=== PATIENT | female | born 1935 | race Caucasian/White ===

== ENCOUNTER → 2016-11-26 | Outpatient (CLI) | payer MEDICARE, BC ==
--- NOTE | 2016-11-26 14:27 | MM ---
Reason for exam: history of breast cancer, mastectomy. Last mammogram was performed 1 year ago. History: Patient is postmenopausal and has history of high-risk lesion on a previous biopsy at age 31. Family history of breast cancer in sister at age 67. Implant Removal of both breasts, 1993. Implants in both breasts, 1979. Mastectomy of the left breast, 1959. Mastectomy of the right breast, 1959. Excisional biopsy of the left breast. Excisional biopsy of the right breast. Physical Findings: Nurse did not find any significant physical abnormalities on exam. MG 3D Diag Mammo W/Cad WOLFGANG Bilateral CC and MLO view(s) were taken. Prior study comparison: November 22, 2015, bilateral MG 3d diag mammo w/cad WOLFGANG. November 15, 2014, bilateral MG diagnostic mammo w CAD WOLFGANG. November 11, 2013, CAD bilateral diagnostic mammogram. November 09, 2012, CAD bilateral diagnostic mammogram. November 08, 2011, CAD bilateral diagnostic mammogram. The breast tissue is almost entirely fat. Subtle nodularity lateral left subareolar region was present in 2011 when the breast was positioned similarly. CC nipple in profile does not show any persisting abnormality. No significant new findings when compared with previous films. These results were verbally communicated with the patient and result sheet given to the patient on 11/26/16. ASSESSMENT: Negative, BI-RAD 1 RECOMMENDATION: Routine screening mammogram of both breasts in 1 year.
== END | disposition home or self-care (01) ==
LOC: RADMAMWWP 12:43
PROVIDERS: ATTEND Internal Medicine Geriatric Medicine
DX: C79.81 Secondary malignant neoplasm of breast (principal)
CPT/HCPCS: G0204; G0279

== ENCOUNTER 2017-07-06 16:01 | Emergency (ER) | payer MEDICARE, BC ==
--- NOTE | 2017-07-06 16:52 | ED ---
General Adult HPI - General Chief complaint: Skin/Abscess/Foreign Body Stated complaint: left leg sore/discharge Time Seen by Provider: 07/06/17 16:23 Source: patient, RN notes reviewed Mode of arrival: ambulatory Limitations: no limitations - History of Present Illness Initial comments: Patient is an 82-year-old female who presents emergency room today with a chief complaint of a wound to the left lower leg. She does admit that she wished, when she was shaving. She states was a week ago. She states that she was cleaning the area with some iodine. States is still not healing seems to be weeping at times with some clear drainage. She states she's been covered with some bandages. She denies any other complaints or symptoms. Patient denies any recent fever, chills, shortness of breath, chest pain, back pain, abdominal pain , nausea or vomiting, numbness or tingling, headaches or visual changes, or any other complaints. - Related Data Home Medications Medication Instructions Recorded Confirmed ALPRAZolam [ALPRAZolam] 0.5 mg PO BID PRN 02/17/14 07/06/17 Aspirin [Adult Low Dose Aspirin EC] 81 mg PO DAILY 07/06/17 07/06/17 Ergocalciferol [Vitamin D2] 50,000 unit PO Q7D 07/06/17 07/06/17 Ibuprofen [Advil] 200 mg PO BID PRN 07/06/17 07/06/17 Metoprolol Succinate [Toprol XL] 12.5 mg PO DAILY 07/06/17 07/06/17 Simvastatin [Zocor] 10 mg PO HS 07/06/17 07/06/17 Previous Rx's Medication Instructions Recorded Cephalexin [Keflex] 500 mg PO Q12HR 10 Days cap 07/06/17 Allergies Allergy/AdvReac Type Severity Reaction Status Date / Time iron AdvReac Nausea & Verified 07/06/17 16:18 Vomiting Review of Systems ROS Statement: Those systems with pertinent positive or pertinent negative responses have been documented in the HPI. ROS Other: All systems not noted in ROS Statement are negative. Past Medical History Past Medical History: Hyperlipidemia, Rheumatoid Arthritis (RA) Additional Past Medical History / Comment(s): heart skips per dr mcdaniel History of Any Multi-Drug Resistant Organisms: None Reported Past Surgical History: Hernia Repair, Hysterectomy, Joint Replacement Additional Past Surgical History / Comment(s): mastectomy- both breasts Past Psychological History: Depression Smoking Status: Never smoker Past Alcohol Use History: None Reported Past Drug Use History: None Reported General Exam - General Exam Comments Initial Comments: General: The patient is awake and alert, in no distress, and does not appear acutely ill. Neck: The neck is supple, there is no tenderness or JVD. Cardiovascular: There is a regular rate and rhythm. No murmur, rub or gallop is appreciated. Respiratory: Lungs are clear to auscultation, respirations are non-labored, breath sounds are equal. No wheezes, stridor, rales, or rhonchi. Musculoskeletal: Full range of motion. Sensation intact. Pulses equal bilaterally 2+ per strength 5/5. Neurological: A&O x 3. CN II-XII intact, There are no obvious motor or sensory deficits. Coordination appears grossly intact. Speech is normal. Skin: One centimeter laceration noted to the medial aspect of the left lower leg. There is some clear drainage weeping from the area. There is no redness or erythema locally. No tenderness or pain on palpation. Psychiatric: Normal mood and affect. Limitations: no limitations Course Vital Signs 07/06/17 16:04 Temperature 97.2 F L Pulse Rate 71 Respiratory 20 Rate Blood Pressure 162/82 O2 Sat by Pulse 100 Oximetry Medical Decision Making - Medical Decision Making She denies any shortness of breath. Has no other symptoms other than the wound that will not heal. Small Steri-Strip was placed over top. Patient was eased topical antibiotic will provide an oral antibiotic as well as peripheral cover for possible infection. She is advised close follow family doctor over the next 2 days or return here to emergency room if there is any increase or worsening of symptoms. She states understanding and is in agreement. Disposition Clinical Impression: Laceration Disposition: HOME SELF-CARE Condition: Good Instructions: Acute Wound Care (ED) Additional Instructions: Please use antibiotic as discussed. Please watch for any increased redness or swelling. Please follow-up family doctor over the next 2 days. Please return to emergency room for any other concerns. Prescriptions: Cephalexin [Keflex] 500 mg PO Q12HR 10 Days cap Referrals: Adonis Mcdaniel MD [Primary Care Provider] - 1-2 days Time of Disposition: 16:51
[2017-07-06 17:08] VITALS: BP 130/82; PULSE 74; RESP 18; TEMP 97.6
== END 2017-07-06 17:09 | disposition home or self-care (01) ==
LOC: EC 16:01
DX: S81.812A Laceration without foreign body, left lower leg, initial encounter (principal); E78.5 Hyperlipidemia, unspecified; F32.9 Major depressive disorder, single episode, unspecified; Z79.82 Long term (current) use of aspirin; Z79.899 Other long term (current) drug therapy; Z88.8 Allergy status to other drugs, medicaments and biological substances; W45.8XXA Other foreign body or object entering through skin, initial encounter
CPT/HCPCS: 99282

== ENCOUNTER → 2017-11-27 | Outpatient (CLI) | payer MEDICARE, BC ==
--- NOTE | 2017-11-27 14:06 | MM ---
Reason for exam: additional evaluation requested from prior study. Last mammogram was performed 1 year ago. History: Patient is postmenopausal and has history of high-risk lesion on a previous biopsy at age 31. Family history of breast cancer in sister at age 67. Implant Removal of both breasts, 1993. Implants in both breasts, 1979. Mastectomy of the left breast, 1959. Mastectomy of the right breast, 1959. Excisional biopsy of the left breast. Excisional biopsy of the right breast. Physical Findings: Nurse did not find any significant physical abnormalities on exam. MG 3D Diag Mammo W/Cad WOLFGANG Bilateral CC and MLO view(s) were taken. Prior study comparison: November 26, 2016, bilateral MG 3d diag mammo w/cad WOLFGANG. November 22, 2015, bilateral MG 3d diag mammo w/cad WOLFGANG. There are scattered fibroglandular densities. There is no discrete abnormality. These results were verbally communicated with the patient and result sheet given to the patient on 11/27/17. ASSESSMENT: Negative, BI-RAD 1 RECOMMENDATION: Follow-up diagnostic mammogram of both breasts in 1 year.
== END | disposition home or self-care (01) ==
LOC: RADMAMWWP 12:51
PROVIDERS: ATTEND Internal Medicine Geriatric Medicine
DX: C79.81 Secondary malignant neoplasm of breast (principal)
CPT/HCPCS: 77066; G0279; 77062

== ENCOUNTER → 2018-06-25 | Outpatient (CLI) | payer MEDICARE, BC ==
[2018-06-25 14:16] VITALS: BP 135/80; PULSE 64; RESP 16; TEMP 97.9; BMI 31.6
--- NOTE | 2018-06-25 14:59 | P.GSHP ---
History of Present Illness H&P Date: 06/25/18 Chief Complaint: breast pain Beba is an 83 year old white female status post bilateral skin sparing mastectomies in August 1978. She had implants placed and subsequently had the implants removed in 1993. The mastectomies were done as she was told she was very high risk to develop cancer. The surgery was done at [facility]. At that time the implants kept hardening and after four capsulotomies done she decided to have them removed. She did have the implants studied and there was evidence that the implants had ruptured. She did not have reconstruction after this. Her implants leaked and she has been getting mammograms for questionable reason for about five years. She has bilateral chest pain and pain under her left arm. Of significance is the fact that in May 2018 she awakened from sleep with an electric shock pain just below both breasts and about the middle breast Center bone. There is some concern that this may be cardiac in nature and she is presently being evaluated for this by Dr. Soares. The pain is intermittent. It last for several months and is very intense. Patient did have a bilateral mammogram performed on . This was felt to be negative BIRADS 1 and repeat bilateral mammogram in 1 year recommended. There is some question as to why she would be needing mammograms if she did indeed have bilateral mastectomies. Family History: 1. father: lung 2. sister: breast 3. sister: throat cancer and tongue cancer 4. maternal uncle: liver 5. maternal aunt: kidney cancer Hormonal History: menarche: 17 : 2, children 2, breast fed: no, age at first: 20 menopause: hysterctomy at 37 BCP: none hormones: none past Surgical History: 1. hysterectomy, took one ovary 2. breast bilateral mastectomy/reconstruction, implants removed 3. hernia (right groin) 4. knee right complete replacement Medical History: 1. arthritis Social History: smoke: none alcohol: none drugs: none - Constitutional Comment: BMI 31.7 Constitutional: Denies chills, Denies fever - EENT Comment: cataract surgery Eyes: denies blurred vision, denies pain Ears: deny: decreased hearing, tinnitus Ears, nose, mouth and throat: Reports headache - Breasts Breasts: bilateral: as per HPI - Cardiovascular Comment: being worked up by cardiology Cardiovascular: Reports chest pain - Respiratory Respiratory: Denies cough, Denies 7 - Gastrointestinal Comment: IBS - Genitourinary (Female) Genitourinary: Denies dysuria, Denies hematuria - Menstruation Menstruation: Reports postmenopausal - Musculoskeletal Comment: ? fibromyalgia wrist fracture knee replacement - Integumentary Integumentary: Reports rash, Denies pruritus - Neurological Neurological: Denies numbness, Denies weakness - Psychiatric Psychiatric: Reports anxiety, Reports depression - Endocrine Endocrine: Reports weight change - Hematologic/Lymphatic Comment: aspirin - Allergic/Immunologic Allergic/Immunologic: Reports as per HPI Past Medical History Past Medical History: Hyperlipidemia, Rheumatoid Arthritis (RA) Additional Past Medical History / Comment(s): heart skips per dr mcdaniel History of Any Multi-Drug Resistant Organisms: None Reported Past Surgical History: Hernia Repair, Hysterectomy, Joint Replacement Additional Past Surgical History / Comment(s): mastectomy- both breasts Past Psychological History: Depression Smoking Status: Never smoker Past Alcohol Use History: None Reported Past Drug Use History: None Reported Medications and Allergies Home Medications Medication Instructions Recorded Confirmed Type ALPRAZolam 0.5 mg PO BID PRN 02/17/14 06/25/18 History Aspirin [Adult Low Dose Aspirin EC] 81 mg PO DAILY 07/06/17 06/25/18 History Cephalexin [Keflex] 500 mg PO Q12HR 10 Days cap 07/06/17 06/25/18 Rx Ergocalciferol [Vitamin D2] 50,000 unit PO APARICIO 07/06/17 06/25/18 History Ibuprofen [Advil] 200 mg PO BID PRN 07/06/17 06/25/18 History Metoprolol Succinate [Toprol XL] 12.5 mg PO DAILY 07/06/17 06/25/18 History Hydrocodone/Acetaminophen [Vernal 1 tab PO Q6HR PRN #20 tab 07/09/17 06/25/18 Rx 5-325] Ondansetron Odt [Zofran Odt] 4 mg PO Q12HR PRN #20 tab 07/09/17 06/25/18 Rx Atorvastatin [Lipitor] 10 mg PO DAILY 06/25/18 06/25/18 History Allergies Allergy/AdvReac Type Severity Reaction Status Date / Time iron AdvReac Nausea & Verified 07/09/17 19:27 Vomiting Surgical - Exam Vital Signs Temp Pulse Resp BP Pulse Ox 97.9 F 64 16 135/80 96 06/25/18 13:59 06/25/18 13:59 06/25/18 13:59 06/25/18 13:59 06/25/18 13:59 BMI 31.7 - General obese - Eyes normal ocular movement - ENT no hearing loss, no congestion - Neck no masses, trachea midline - Respiratory normal respiratory effort, clear to auscultation - Cardiovascular Rhythm: regular Heart Sounds: normal: S1, S2 - Abdomen Abdomen: soft - Neurologic no disoriented, no combative - Musculoskeletal normal gait - Psychiatric oriented to time, oriented to person, oriented to place, speech is normal, memory intact breast exam: Right breast: Well-healed scars from prior surgery there is definite residual breast tissue multiple positional exam no dominant masses or nodules of concern Left breast: Well-healed scars from prior surgery there is definite residual breast tissue multiple positional exam no dominant masses or nodules of concern Right axilla: No adenopathy of concern Left axilla: No adenopathy of concern There does appear to be discomfort with examination but this appears to be more related to chest wall discomfort than actual discomfort in the breast tissue. Results Mammogram report reviewed Assessment and Plan Assessment: Impression: 1. Bilateral chest wall discomfort 2. Rule out cardiac cause for pain 3. Status post some type of breast reduction procedure with implants placed which were subsequently removed patient now has scar tissue related to this 4. Mammogram bilateral in November 2017 did not reveal any lesions of concern 5. Gross arthritis 6. depression Plan: 1. Medical management of medical conditions 2. Cardiac evaluation as per 3. Follow-up. After cardiac evaluation 4. No deffinate breast lesions or cause of pain noted in breast at this time CC: Dr. Mcdaniel
== END | disposition home or self-care (01) ==
LOC: WWCWWP 13:41
PROVIDERS: ATTEND Surgery
DX: Z53.9 Procedure and treatment not carried out, unspecified reason (principal)

== ENCOUNTER → 2018-07-01 | Outpatient (CLI) | payer MEDICARE, BC ==
--- NOTE | 2018-07-01 11:45 | US ---
EXAMINATION TYPE: US abdomen complete DATE OF EXAM: 07/01/2018 COMPARISON: 07/04/2015 CLINICAL HISTORY: Generalized R10.84. Patient states having RUQ pain that radiated to the LUQ, NPO, n o surgeries EXAM MEASUREMENTS: Liver Length: 13.5 cm Gallbladder Wall: 0.3 cm CBD: 0.4 cm CHD: 0.3 cm Spleen: 10.6 cm Right Kidney: 8.8 x 4.4 x 3.7 cm Left Kidney: 10.2 x 3.9 x 3.9 cm Pancreas: Appears echogenic in appearance, Liver: Appears echogenic and course in appearance Gallbladder: wnl Evidence for sonographic Lazar's sign: neg CBD: wnl CHD: wnl Spleen: wnl Right Kidney: wnl Left Kidney: wnl Upper IVC: wnl Abd Aorta: wnl IMPRESSION: 1. No acute abnormality abdomen ultrasound.
== END | disposition home or self-care (01) ==
LOC: RADUSWWP 08:34
PROVIDERS: ATTEND Internal Medicine Geriatric Medicine
DX: R10.84 Generalized abdominal pain (principal)
CPT/HCPCS: 76700

== ENCOUNTER → 2018-09-03 | Outpatient (CLI) | payer MEDICARE, BC ==
[2018-09-03 13:11] VITALS: BP 135/75; PULSE 66; RESP 18; TEMP 97.7
--- NOTE | 2018-09-03 13:40 | P.PN ---
Subjective Progress Note Date: 09/03/18 Principal diagnosis: Chest wall discomfort/electric shock like in nature The patient is an 83-year-old white female who initially presented with a complaint of bilateral chest wall discomfort. She is status post bilateral reduction mammoplasties with implant placement in 1978. The implants were subsequently removed in 1993. She has not had additional implants placed. The patient did have a bilateral mammogram in November 2017 which was felt to be negative BIRADS 1. The chest wall discomfort was of concern that this may be cardiac in nature and she is following with Dr. Rosenbaum. Patient is requesting a bilateral breast and axillary ultrasounds be performed. She does have a positive family history of sister being diagnosed with breast cancer. Objective - Vital Signs Vital signs: Vital Signs Temp 97.7 F 09/03/18 13:08 Pulse 66 09/03/18 13:08 Resp 18 09/03/18 13:08 BP 135/75 09/03/18 13:08 Pulse Ox 97 09/03/18 13:08 Intake & Output 09/02/18 09/03/18 09/03/18 18:59 06:59 18:59 Weight 81.193 kg - Constitutional General appearance: Present: obese - EENT Eyes: Present: EOMI ENT: Present: hearing grossly normal - Neck Neck: Present: normal ROM - Respiratory Respiratory: bilateral: CTA - Cardiovascular Rhythm: regular Heart sounds: normal: S1, S2 - Gastrointestinal General gastrointestinal: Present: soft - Psychiatric Psychiatric: Present: A&O x's 3, appropriate affect, intact judgment & insight - Additional findings Additional findings: Breast exam: Right breast: Multiple positional exam well-healed scars from prior surgery, no dominant masses or nodules of concern Right axilla: No adenopathy of concern Left breast: Well-healed scar from prior surgery left axilla: no adenopathy of concern Assessment and Plan Assessment: Impression: 1. Bilateral chest wall discomfort 2. Patient being followed by cardiology 3. Patient status post breast reduction with implants placed and subsequent removal of the implants 4. Bilateral mammogram in November 2017 did not reveal any lesions of concern 5. Arthritis 6. Depression Plan: 1. Medical management of medical conditions 2. Continue cardiac management as per Dr. Soares 3. Patient has requested bilateral breast and axillary ultrasounds which will be ordered 4. Bilateral mammogram in November 2018 5. Follow up after bilateral mammogram and ultrasound performed CC: Dr. Queen
== END ==
LOC: WWCWWP 12:24
PROVIDERS: ATTEND Surgery
DX: Z53.9 Procedure and treatment not carried out, unspecified reason (principal)

== ENCOUNTER → 2018-10-05 | Outpatient (CLI) | payer MEDICARE, BC ==
--- NOTE | 2018-10-06 08:04 | USB ---
Reason for exam: clinical finding. History: Patient is postmenopausal and has history of high-risk lesion on a previous biopsy at age 31. Family history of breast cancer in sister at age 67. Implant Removal of both breasts, 1993. Implants in both breasts, 1979. Mastectomy of the left breast, 1959. Mastectomy of the right breast, 1959. Excisional biopsy of the left breast. Excisional biopsy of the right breast. Indicated problem(s): pain in both breasts. Physical Findings: Nurse did not find any significant physical abnormalities on exam. US Breast BILAT Right complete breast ultrasound includes all four quadrants, the retroareolar region and axilla. Finding demonstrates a 8mm lymph node at the axilla, no cystic or solid lesion seen. Left complete breast ultrasound includes all four quadrants, the retroareolar region and axilla. Finding demonstrates a 4mm and 5mm lymph node at the axilla, no cystic or solid lesion seen. These results were verbally communicated with the patient and result sheet given to the patient on 10/05/18. ASSESSMENT: Benign, BI-RAD 2 RECOMMENDATION: Follow-up diagnostic mammogram of both breasts in 2 months. Back on schedule for November 2018.
== END | disposition home or self-care (01) ==
LOC: RADUSWWP 15:26
PROVIDERS: ATTEND Surgery
DX: N64.4 Mastodynia (principal)

== ENCOUNTER → 2018-10-08 | Outpatient (CLI) | payer MEDICARE, BC ==
--- NOTE | 2018-10-08 11:58 | CT ---
EXAMINATION TYPE: CT chest w con DATE OF EXAM: 10/08/2018 COMPARISON: NONE HISTORY: SOB CT DLP: 403.9 mGycm. Automated Exposure Control for Dose Reduction was Utilized. TECHNIQUE: CT scan of the thorax is performed following with IV Contrast, patient injected with 100 mL of Isovue 300. FINDINGS: LUNGS: The lungs are grossly clear, there is no concerning parenchymal mass or nodule identified. Mul tifocal bandlike pleural parenchymal scarring and/or atelectasis is seen, particularly at the left karina ng base contiguous with the pleural surface. There is no pleural effusion or pneumothorax seen. Th e tracheobronchial tree is patent. MEDIASTINUM: There are no greater than 1 cm hilar or mediastinal lymph nodes. No pericardial effusi on is seen. Severe coronary artery calcifications are evident. Heart is mildly enlarged. OTHER: There is encapsulated haziness of the central mesentery with few nonenlarged clustered enteric lymph nodes that most commonly relates to mesenteric panniculitis/sclerosing mesenteritis and less l ikely can be seen in lymphoma. No enlarged lymph nodes are seen at this time. There is severe atherosclerosis at the left renal artery ostial. There is hypertension renal arterial stenosis could be considered. Small hiatal hernia is incidentally seen. The liver is decreased in at tenuation in comparison to the spleen compatible with mild degree hepatic steatosis. Compression defo rmity is seen of T7 however this does appear as a butterfly vertebrae on coronal images and could be congenital. Anterior bridging osteophytes are seen of the midthoracic spine. IMPRESSION: 1. Bandlike pleural parenchymal scarring and left basilar atelectasis contiguous with the pleural krunal face that is subsegmental. 2. 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 These findings less commonly be seen in low-grade lymphoma however no enlarged lymph nodes are seen at this time. 3. 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 Ultrasound with Doppler could confirm renal arter ial stenosis. 4. 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 Correlate for point tenderness.
== END ==
LOC: RADCTMAIN 09:59
PROVIDERS: ATTEND Internal Medicine Critical Care Medicine
DX: J98.4 Other disorders of lung (principal); J98.11 Atelectasis
CPT/HCPCS: 82565; 84520; 71260; 36415; Q9967

== ENCOUNTER → 2018-10-22 | Outpatient (CLI) | payer MEDICARE, BC ==
[2018-10-22 12:55] VITALS: BP 138/78; PULSE 69; RESP 18; TEMP 98; BMI 29.9
--- NOTE | 2018-10-22 13:38 | P.PN ---
Subjective Progress Note Date: 10/22/18 Principal diagnosis: breast discomfort Beba is an 83 year old white female initially seen in June 2018 with a complaint of bilateral chest/breast pain. Her chest and breast discomfort is improved at this time. She has been evaluated by pulmonary and is going to start on oxygen at night. The patient's history is significant for the fact that she had bilateral skin sparing mastectomies in August 1978. She had implants placed and subsequently they were removed in 1993. The mastectomies were done and she was told she was very high risk to develop cancer. The surgery was done upon [facility]. At that time the implants Hardening and after 4 capsulotomies she decided to have them removed. At that time they were removed it was noted that the implants had leaked. She has been getting mammograms and does have significant residual breast tissue. The patient was seen by cardiology and told that she most likely had a myocardial infarction she was started on Lipitor but no other medications. The pain that she had on her presentation in June has improved. She did have a bilateral breast ultrasound performed on and was felt to be benign BIRADS 2. She is scheduled for follow-up diagnostic mammogram of both breast in 2 months. Family History: 1.father: lung 2. sister: breast 3. sister: throat cncer and tongue cancer 4. maternal uncle: liver 5. maternal aunt: kidney cancer Past surgical history: 1. Hysterectomy 2. Bilateral mastectomy/reconstruction/implants removed 2. Hernia 4. Right knee complete replacement Medical history: 1. Arthritis 2. Shortness of breath patient being started on oxygen 3. Probable myocardial infarction as per cardiology as per patient ROS: HEENT: Negative Lungs: Shortness of breath requiring nighttime oxygen Cardiac: Possible prior [place] GI: Recent CAT scan showing some evidence of mesenteric inflammation being followed by Dr. Queen : Kidney stones Musculoskeletal: Arthritis Breasts: Discomfort status post bilateral mastectomies with significant amount of residual breast tissue, status post implant placements which have been removed Objective - Vital Signs Vital signs: Vital Signs Temp 98.0 F 10/22/18 12:53 Pulse 69 10/22/18 12:53 Resp 18 10/22/18 12:53 BP 138/78 10/22/18 12:53 Pulse Ox 97 10/22/18 12:53 Intake & Output 04/03/19 04/04/19 04/04/19 18:59 06:59 18:59 Weight 78.018 kg - Exam BMI 30 - Constitutional General appearance: Present: average body habitus - EENT Eyes: Present: EOMI ENT: Present: hearing grossly normal - Neck Neck: Present: normal ROM - Respiratory Respiratory: bilateral: CTA - Cardiovascular Rhythm: regular Heart sounds: normal: S1, S2 - Gastrointestinal General gastrointestinal: Present: soft - Musculoskeletal Musculoskeletal: Present: gait normal - Psychiatric Psychiatric: Present: A&O x's 3, appropriate affect, intact judgment & insight - Additional findings Additional findings: breast exam: right breast: Multi-positional exam well-healed scars from prior surgery no dominant masses or nodules of concern Right axilla: No adenopathy of concern Left breast: Multi-positional exam no dominant masses or nodules of concern, the patient probable fungal infection inferior to the breast Fibrocystic changes Left axilla: No adenopathy of concern Assessment and Plan Assessment: Impression: 1. Bilateral chest wall discomfort improved 2. Patient being followed by cardiology 3. Patient status post breast reduction with implants placed and subsequently removed 4. Bilateral mammogram due November 2018 5. Recent breast ultrasound no lesions of concern 6. Arthritis 7. Depression in the past 8. Being started on oxygen at night 9. Probable fungal infection inferior to the left breast Plan: 1. Bilateral mammogram in 2 months with physician exam at that time 2. Continued management of medical conditions as per medical doctors 3. Nystatin to area under her left breast CC: Dr. Queen
== END ==
LOC: WWCWWP 12:28
PROVIDERS: ATTEND Surgery
DX: Z53.9 Procedure and treatment not carried out, unspecified reason (principal)

== ENCOUNTER → 2018-11-24 | Outpatient (CLI) | payer MEDICARE, BC ==
[2018-11-24 08:52] LABS: Basophils % (A) 1 %; Eosinophils # (A) 0.1 k/uL (0-0.7); Eosinophils % (A) 2 %; HCT 41.3 % (34.0-46.0); HGB 13.2 gm/dL (11.4-16.0); Lymphocytes # (A) 1.4 k/uL (1.0-4.8); Lymphocytes % (A) 26 %; MCH 28.3 pg (25.0-35.0); MCV 88.5 fL (80.0-100.0); Mean Platelet Volume 8.9; Monocytes # (A) 0.3 k/uL (0-1.0); Monocytes % (A) 6 %; Neutrophils # (A) 3.4 k/uL (1.3-7.7); Neutrophils % (A) 63 %; Platelet Count 172 k/uL (150-450); RBC 4.67 m/uL (3.80-5.40); RDW 13.5 % (11.5-15.5); WBC 5.5 k/uL (3.8-10.6)
[2018-11-24 17:39] LABS: Albumin 4.1 g/dL (3.80-4.90); Albumin/Globulin Ratio 2.28 (1.60-3.17); Anion Gap 8.7 mmol/L (4.00-12.00); Calcium 9.1 mg/dL (8.7-10.3); Carbon Dioxide 25.3 mmol/L (21.6-31.8); Globulin 1.8 g/dL (1.6-3.3); LDL Cholesterol,Calculated 71.4 mg/dL (0.0-131.0); Potassium 4.1 mmol/L (3.5-5.5); Total Bilirubin 0.8 mg/dL (0.2-1.2); Total Protein 5.9 g/dL (6.2-8.2); VLDL Calculation 15.6 mg/dL (5.00-40.00)
== END | disposition home or self-care (01) ==
LOC: LABWHC1 08:15
PROVIDERS: ATTEND Internal Medicine Geriatric Medicine
DX: R79.9 Abnormal finding of blood chemistry, unspecified (principal); Z00.00 Encounter for general adult medical examination without abnormal findings; I25.10 Atherosclerotic heart disease of native coronary artery without angina pectoris; E55.9 Vitamin D deficiency, unspecified
CPT/HCPCS: 36415; 80053; 80061; 82306; 82550; 84439; 84443; 85025

== ENCOUNTER → 2018-12-07 | Outpatient (CLI) | payer MEDICARE, BC ==
--- NOTE | 2018-12-08 08:31 | MM ---
Reason for exam: additional evaluation requested from prior study. Last mammogram was performed 1 year ago. History: Patient is postmenopausal and has history of high-risk lesion on a previous biopsy at age 31. Family history of breast cancer in sister at age 67. Implant Removal of both breasts, 1993. Implants in both breasts, 1979. Mastectomy of the left breast, 1959. Mastectomy of the right breast, 1959. Excisional biopsy of the left breast. Excisional biopsy of the right breast. Physical Findings: Nurse did not find any significant physical abnormalities on exam. MG 3D Diag Mammo W/Cad WOLFGANG Bilateral CC and MLO view(s) were taken. Prior study comparison: November 27, 2017, bilateral MG 3d diag mammo w/cad WOLFGANG. November 26, 2016, bilateral MG 3d diag mammo w/cad WOLFGANG. There are scattered fibroglandular densities. No significant new findings when compared with previous films. These results were verbally communicated with the patient and result sheet given to the patient on 12/07/18. ASSESSMENT: Benign, BI-RAD 2 RECOMMENDATION: Follow-up diagnostic mammogram of both breasts in 1 year.
== END | disposition home or self-care (01) ==
LOC: RADMAMWWP 12:44
PROVIDERS: ATTEND Surgery
DX: R92.8 Other abnormal and inconclusive findings on diagnostic imaging of breast (principal)
CPT/HCPCS: 77066; G0279; 77062

== ENCOUNTER → 2018-12-17 | Outpatient (CLI) | payer MEDICARE, BC ==
[2018-12-17 13:36] VITALS: BP 157/73; PULSE 55; RESP 18; TEMP 97.6; BMI 28.7
--- NOTE | 2018-12-17 14:36 | P.PN ---
Subjective Progress Note Date: 12/17/18 Principal diagnosis: pain and swelling under both arms last night Patient complains of pain and swelling under both arms last night after moving heavy furniture. She states it is better now. The chest wall shock like pain has resolved. She has been seen by cardiology and does not feel she needs treatment. The question is if she had a HI without changes noted on studies. The patients last mammogram was on 12-07-18 which did not show anything of concern, and she is recommended to have a repeat mammogram in one year. She had a CT of chest on 10-08-18 and is being followed by Dr. Queen. She is following with DR. Queen for these changes. Family History: 1. father: lung 2. sister: breast 3. sister: throat cancer and tongue cancer 4. maternal uncle: liver 5. maternal aunt: kidney cancer Hormonal History: menarche: 17 menopause: hysterctomy at 37 BCP: none hormones: none Surgical History: 1. hysterctomy 2. breast bilateral mastectomy/reconstruction 3. hernia 4. knee Medical History: arthritis abnormal CT of the chest, being followed by Dr. Queen ROS: HEENT: none lungs: none heart: ? [place] GI: abnormal CT scan, IBS : kidney stones musculoskeletal: arthritis, knee replacement right knee psych: anziety/depression hemotologic: none Objective - Vital Signs Vital signs: Vital Signs Temp 97.6 F 12/17/18 13:28 Pulse 55 L 12/17/18 13:28 Resp 18 12/17/18 13:28 BP 157/73 12/17/18 13:28 Pulse Ox Intake & Output 12/16/18 12/17/18 12/17/18 18:59 06:59 18:59 Weight 73.482 kg - Constitutional General appearance: Present: average body habitus - EENT Eyes: Present: EOMI ENT: Present: hearing grossly normal - Neck Neck: Present: normal ROM - Respiratory Respiratory: bilateral: CTA - Cardiovascular Rhythm: regular Heart sounds: normal: S1, S2 - Gastrointestinal General gastrointestinal: Present: soft - Integumentary Integumentary: Present: normal turgor - Musculoskeletal Musculoskeletal: Present: gait normal - Psychiatric Psychiatric: Present: A&O x's 3 - Additional findings Additional findings: breast exam: right breast: multipositional exam no masses or nodules of concern right axilla: no adenopathy of concern left breast: multipositional exam no masses or nodules of concern, fibrocystic changes left axilla: no adenopathy of concern Assessment and Plan Assessment: Impression: 1. fibrocystic changes of the breast 2. resolved breast pain 3. abnormal CT of chest/abdominal findings 4. anxiety/depression plan: 1. repeat mammogram and appointment in one year 2. CT findings being worked up be DR. Queen CC: Dr. Queen
== END | disposition home or self-care (01) ==
LOC: WWCWWP 13:22
PROVIDERS: ATTEND Surgery
DX: Z53.9 Procedure and treatment not carried out, unspecified reason (principal)

== ENCOUNTER → 2019-01-26 | Outpatient (CLI) | payer MEDICARE, BC ==
--- NOTE | 2019-01-26 13:28 | CT ---
EXAMINATION TYPE: CT abdomen pelvis w con DATE OF EXAM: 01/26/2019 COMPARISON: CT abdomen 08/17/[address] chest 10/08/2018 HISTORY: 83-year-old female with generalized abd pain, abn CT chest report TECHNIQUE: Contiguous axial scanning of the abdomen and pelvis following administration of 100 ml Iso maribel 300 IV contrast. Delayed images through the kidneys and coronal/sagittal reconstructions perform ed. CT DLP: 856.7 mGycm Automated exposure control for dose reduction was used. FINDINGS: Heart upper limits of normal in size without pericardial effusion. Strandy atelectasis in the lower l ungs without pleural effusion. Small hiatal hernia. No focal liver lesion or biliary ductal dilatation. Portal venous system is patent. Gallbladder, adrenal glands, spleen, and pancreas appear within normal limits. There is mild right-sided pelvicaliectasis but with symmetric uptake and excretion of contrast from b oth kidneys. The degree of central located miguel ángel mesentery is similar as visualized on 10/08/2028 CT chest. Compari son to patient's 2016 exam also shows relatively stable appearance. Lymph nodes in this region are sl ightly prominent measuring up to 4 mm but not abnormally enlarged. Oral contrast progressed to the hepatic flexure. Mild to moderate stool burden. Mild diverticular change along the transverse colon. No pericolonic inflammatory change. No dilated small bowel, free fluid, or free air. Scattered moderate after describing calcifications abdominal aorta and iliac arteries with redemonstr ated severe atherosclerotic change at the origin of the left renal artery. Bladder is urine distended. Pelvic floor relaxation. Uterus surgically absent. Right ovary is visuali zed. Left ovary not clearly identified. Platelets in the pelvis. No abnormal fluid collection in the pelvis or pelvic lymphadenopathy. Bones: Degenerative changes of the pubic symphysis and both hips. Facet arthropathy mid to lower lumb ar spine. No osseous destructive process. IMPRESSION: 1. STABLE MIGUEL ÁNGEL MESENTERY WITH A FEW PROMINENT BUT NOT ENLARGED CENTRAL MESENTERIC LYMPH NODES COM PARED TO 08/09/2015. 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 CORRELATE FOR ANY CHRONIC SYMPTOMS. AN INDOLENT LYMPHOMA IS CONSIDERED LESS L IKELY GIVEN OVER 3 YEARS OF STABILITY. 2. REDEMONSTRATED SEVERE ATHEROSCLEROTIC CALCIFICATIONS AT THE LEFT RENAL ARTERY ORIGIN. 3. PELVIC FLOOR RELAXATION.
== END | disposition home or self-care (01) ==
LOC: RADCTMAIN 10:16
PROVIDERS: ATTEND Internal Medicine Geriatric Medicine
DX: I70.1 Atherosclerosis of renal artery (principal)
CPT/HCPCS: 82565; 84520; 74177; 36415; Q9967

== ENCOUNTER → 2019-02-11 | Outpatient (CLI) | payer MEDICARE, BC ==
--- NOTE | 2019-02-11 14:46 | P.PN ---
Subjective Progress Note Date: 02/11/19 Beba is an 83 year old white female initially seen in June 2018 with a complaint of bilateral chest/breast pain. Her chest and breast discomfort is improved at this time. The patient's breast pain has resolved. She does continue to have some left breast discomfort. She was evaluated by pulmonary and was started on oxygen at night. This helps her sleep better at night. The patient's history is significant for the fact that she had bilateral skin sparing mastectomies in August 1978. She had implants placed and subsequently they were removed in 1993. The mastectomies were done and she was told she was very high risk to develop cancer. The surgery was done at [facility]. At that time the implants Hardening and after 4 capsulotomies she decided to have them removed. At that time they were removed it was noted that the implants had leaked. She has been getting mammograms and does have significant residual breast tissue. The patient was seen by cardiology and told that she most likely had a myocardial infarction she was started on Lipitor but no other medications. The patient had a bilateral mammogram done in November 2018. This was felt to be benign BIRADS 2 and repeat mammogram in 1 year was recommended. This was a 3-D mammogram. She had a CAT scan done of her abdomen and pelvis on January 26. The impression was stable mesentery with a few prominent but not enlarged central mesenteric lymph nodes as compared to July 2015. 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 An indolent lymphoma was considered less likely given the 3 years of stability. Also demonstrated was atherosclerotic calcification at the level of the renal artery origin. She also has pelvic floor relaxation. She did have a bilateral breast ultrasound performed on and was felt to be benign BIRADS 2. She is scheduled for follow-up diagnostic mammogram of both breast in 2 months. The patient drinks one cup of coffee per day. She does not drink soda. Not smoke and is not exposed to secondhand smoke. She eats at least one piece of dark chocolate per day. The patient has lost 14 pounds since she started coming here. Family History: 1.father: lung 2. sister: breast 3. sister: throat cncer and tongue cancer 4. maternal uncle: liver 5. maternal aunt: kidney cancer Past surgical history: 1. Hysterectomy 2. Bilateral mastectomy/reconstruction/implants removed 2. Hernia 4. Right knee complete replacement Medical history: 1. Arthritis 2. Shortness of breath patient being started on oxygen, improved 3. Probable myocardial infarction as per cardiology as per patient 4. atherosclerotic changes renal orfice ROS: HEENT: Negative Lungs: Shortness of breath requiring nighttime oxygen Cardiac: Possible prior [place] GI: Recent CAT scan showing some evidence of mesenteric inflammation being followed by Dr. Queen : Kidney stones Musculoskeletal: Arthritis Breasts: Discomfort status post bilateral mastectomies with significant amount of residual breast tissue, status post implant placements which have been removed Objective - Constitutional General appearance: Present: obese - EENT Eyes: Present: EOMI ENT: Present: hearing grossly normal - Neck Neck: Present: normal ROM - Respiratory Respiratory: bilateral: CTA - Cardiovascular Rhythm: regular Heart sounds: normal: S1, S2 - Gastrointestinal General gastrointestinal: Present: soft - Integumentary Integumentary: Present: normal turgor - Musculoskeletal Musculoskeletal: Present: gait normal - Psychiatric Psychiatric: Present: A&O x's 3, appropriate affect, intact judgment & insight - Additional findings Additional findings: beast exam: right Breasts: Multiple positional exam no dominant masses or nodules of concern, well-healed scars from prior breast surgery Right axilla: No adenopathy of concern Left breast: Multiple positional exam tenderness to palpation in the medial aspect of the breast, no dominant masses or nodules of concern Left axilla: No adenopathy of concern Under the left breast is some evidence of fungal infection Assessment and Plan Assessment: Impression: 1. Arthritis 2. Shortness of breath patient being started on oxygen, improved 3. Probable myocardial infarction as per cardiology as per patient 4. atherosclerotic changes renal orfice 5. breast pain 6. fungal infection under the left breast 7. CT abnormal 8. athrosclerotic changes right kidney Plan: 1. primrose oil 2. avoid caffeine 3. medcal managment of medical problems 4. follow up bilateral mammogram in November 2019 CC: Dr. Queen
== END | disposition home or self-care (01) ==
DX: Z53.9 Procedure and treatment not carried out, unspecified reason (principal)

== ENCOUNTER → 2019-05-25 | Outpatient (CLI) | payer MEDICARE, BC ==
--- NOTE | 2019-05-25 12:45 | CT ---
EXAMINATION TYPE: CT abdomen pelvis w con DATE OF EXAM: 05/25/2019 HISTORY: Abdominal pain, R/O CA CT DLP: 961.8mGycm Automated Exposure Control for Dose Reduction was Utilized. CONTRAST: CT scan of the abdomen and pelvis is performed with IV Contrast, patient injected with 100 mL of Isov ue 300. COMPARISON: 01/26/2019 and 08/17/2015 FINDINGS: LUNG BASES: Linear pleural parenchymal scarring of the lung bases and right middle lobe as well as mi nimal multifocal subsegmental atelectasis. Redemonstration of a small hiatal hernia containing oral c ontrast that may be on the basis of gastroesophageal reflux or delayed transit. LIVER/GB: Liver enhances homogeneously without identifiable mass or dilated biliary tree. Gallbladder is unremarkable. PANCREAS: No ductal dilatation is seen. Pancreas enhances homogeneously. SPLEEN: No splenomegaly. ADRENALS: No significant abnormality is seen. KIDNEYS: Right-sided pelvocaliectasis is again noted as seen on the prior. Pelvic floor relaxation is seen with possible cystocele on image 75. Coronal image demonstrates 2 punctate nonobstructing appro ximately 2 mm right lower pole renal calculi and image 45. Left upper pole nonobstructing calculus is also 2 mm on image 61. BOWEL: No dilated large or small bowel. Few scattered colonic diverticula without pericolonic fat str anding. UTERUS/ADNEXA: Uterus appears surgically absent. LYMPH NODES: No greater than 1cm abdominal or pelvic lymph nodes are appreciated. OSSEOUS STRUCTURES: Diffuse osseous demineralization and degenerative changes of the spine. OTHER: There is a stable appearance of the central miguel ángel mesentery again in comparison to the exam of 2016 this is relatively stable. No enlarged lymph nodes are seen. Lymph nodes measure up to 4.7 mm i n the region that was measured on the prior (4 mm). This has a typical appearance of mesenteric panni culitis. A central mesenteric lymph node on series 3 image 26 measures approximately 6 mm and previou sly measured 5 mm. There is no significant interval growth and change in caliber at 1 mm could be on the basis of slice selection. Extensive atheromatous changes of the aorta are seen at the SMA ostia and renal ostia and of the lowe r abdominal aorta and its branches. IMPRESSION: 1. 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 Relatively stable appearance from 2016 with no new enlarged lymph nodes. 2. 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 Atheromatous calcificatio ns of the abdominal aorta. 3. Redemonstration of pelvis for relaxation with probable cystocele of the urinary bladder.
== END | disposition home or self-care (01) ==
LOC: RADCTMAIN 10:12
PROVIDERS: ATTEND Internal Medicine Geriatric Medicine
DX: I70.0 Atherosclerosis of aorta (principal); I70.1 Atherosclerosis of renal artery; R10.84 Generalized abdominal pain
CPT/HCPCS: 82565; 84520; 74177; 36415; Q9967

== ENCOUNTER → 2020-04-25 | Outpatient (CLI) | payer MEDICARE, BC ==
--- NOTE | 2020-04-25 16:19 | CT ---
EXAMINATION TYPE: CT abdomen pelvis w con DATE OF EXAM: 04/25/2020 COMPARISON: 05/25/2019 INDICATION: Non-Hodgkin lymphoma DLP: 811.9 mGycm, Automated exposure control for dose reduction was used. CONTRAST: 100 mL of Isovue 300. Study performed with Oral Contrast TECHNIQUE: Axial images were obtained from above the diaphragm to the pubic rami in the axial plane a t 5 mm thick sections. Reconstructed images are reviewed on the computer in the coronal plane. FINDINGS: Limited CT sections are obtained the lung bases. The lung bases are clear. CT ABDOMEN: Liver: Normal Spleen: Normal Pancreas: Normal Adrenal glands: The adrenal glands are normal. Gallbladder: Normal Kidneys: No masses are evident. No hydronephrosis is present. No cysts are present. Delayed images were obtained through the kidneys, which remain unremarkable. Aorta: Vascular calcification is within the aorta. Inferior vena cava: Normal. CT PELVIS: Loops of bowel within the abdomen and pelvis are normal. Scattered diverticuli are within the sigmoid colon. No suspicious inflammatory changes to suggest acute diverticulitis is evident. There are l oops of bowel which are incompletely distended or lack oral contrast limiting their evaluation. Appendix: Not identified. No suspicious dilated tubular structures or inflammatory changes are eviden t. Urinary bladder: Normal. Genitourinary structures: Prostate is prominent Osseous structures: No suspicious lytic or sclerotic lesions. Lymph nodes: No suspicious retrocrural periaortic or retrocaval adenopathy is evident. There is vague increased density within the mid mid mesentery. There is a 0.8 cm lymph node within the upper abdome n, series 3 image 30. Couple small lymph nodes are more inferior. No suspicious pelvic adenopathy. IMPRESSIONS: 1. Diverticulosis without acute diverticulitis. 2. Improving inflammatory type change within the midabdomen. The largest mesenteric lymph node curren tly measures 0.7 cm.
== END | disposition home or self-care (01) ==
LOC: RADCTMAIN 11:54
PROVIDERS: ATTEND Internal Medicine Geriatric Medicine
DX: C85.90 Non-Hodgkin lymphoma, unspecified, unspecified site (principal); K57.30 Diverticulosis of large intestine without perforation or abscess without bleeding; K29.70 Gastritis, unspecified, without bleeding; R59.0 Localized enlarged lymph nodes
CPT/HCPCS: 82565; 84520; 74177; 36415; Q9967

== ENCOUNTER 2020-12-19 10:55 | Emergency (ER) | payer MEDICARE, BC ==
[2020-12-19 11:06] VITALS: TEMP 98
--- NOTE | 2020-12-19 11:52 | ED ---
SOB HPI - General Chief Complaint: Shortness of Breath Stated Complaint: chest pain, leg swelling Time Seen by Provider: 12/19/20 11:26 Source: patient, family, RN notes reviewed Mode of arrival: wheelchair Limitations: no limitations - History of Present Illness Initial Comments: This is a 5-year-old female who presents with complaints of shortness of breath he states Her about 3 days she's had exertional dyspnea and some vague chest discomfort that time she also states for the past 2 weeks she's had bladder incontinence. No overt fevers chills nausea vomiting or sweats no overt palpitations she does states she's has some again today. Additionally patient states that she was very dizzy yesterday did she did take Antivert which did help with the dizziness. MD Complaint: shortness of breath - Related Data Home Medications Medication Instructions Recorded Confirmed Aspirin [Adult Low Dose Aspirin EC] 81 mg PO QAM 07/06/17 12/19/20 Ibuprofen [Advil] 200 mg PO BID PRN 07/06/17 12/19/20 ALPRAZolam [Xanax] 0.25 mg PO TID PRN 12/19/20 12/19/20 Atorvastatin [Lipitor] 20 mg PO BID@1400,1800 12/19/20 12/19/20 Isosorbide Mononitrate ER [Imdur] 15 mg PO DAILY 12/19/20 12/19/20 Allergies Allergy/AdvReac Type Severity Reaction Status Date / Time iron AdvReac Nausea & Verified 12/19/20 12:41 Vomiting Review of Systems ROS Statement: Those systems with pertinent positive or pertinent negative responses have been documented in the HPI. ROS Other: All systems not noted in ROS Statement are negative. Past Medical History Past Medical History: Hyperlipidemia, Rheumatoid Arthritis (RA) Additional Past Medical History / Comment(s): heart skips per dr mcdaniel History of Any Multi-Drug Resistant Organisms: None Reported Past Surgical History: Hernia Repair, Hysterectomy, Joint Replacement Additional Past Surgical History / Comment(s): mastectomy- both breasts Past Psychological History: Depression Smoking Status: Never smoker Past Alcohol Use History: None Reported Past Drug Use History: None Reported General Exam - General Exam Comments Initial Comments: This a well-developed well-nourished awake alert oriented 3 female Limitations: no limitations General appearance: alert, in no apparent distress Head exam: Present: atraumatic, normocephalic, normal inspection Eye exam: Present: normal appearance, PERRL, EOMI. Absent: scleral icterus, conjunctival injection, periorbital swelling ENT exam: Present: normal exam, mucous membranes moist Neck exam: Present: normal inspection. Absent: tenderness, meningismus, lymphadenopathy Respiratory exam: Present: decreased breath sounds. Absent: respiratory distress, wheezes, rales, rhonchi, stridor Cardiovascular Exam: Present: regular rate, normal rhythm, normal heart sounds. Absent: systolic murmur, diastolic murmur, rubs, gallop, clicks GI/Abdominal exam: Present: soft, normal bowel sounds. Absent: distended, tenderness, guarding, rebound, rigid Extremities exam: Present: normal inspection, full ROM, normal capillary refill. Absent: tenderness, pedal edema, joint swelling, calf tenderness Back exam: Present: normal inspection Neurological exam: Present: alert, oriented X3, CN II-XII intact Psychiatric exam: Present: normal affect, normal mood Skin exam: Present: warm, dry, intact, normal color. Absent: rash Course Vital Signs 12/19/20 12/19/20 12/19/20 10:59 13:01 14:04 Temperature 98.0 F Pulse Rate 81 74 71 Respiratory 18 18 18 Rate Blood Pressure 136/69 143/71 152/68 O2 Sat by Pulse 98 Oximetry - Reevaluation(s) Reevaluation #1: 12/19/20 11:52 Initial EKG appeared to show evidence of atrial flutter repeat however shows sinus rhythm. Medical Decision Making - Medical Decision Making I did discuss findings with the patient she be admitted for any reason the ultrasound was negative for DVT EKG shows evidence of artifact I did observe the patient's urine does appear to be clear a UA will be sent for follow-up with Dr. Mcdaniel. Additionally the patient does not want to be admitted today and will follow-up with Dr. Mcdaniel - Lab Data Result diagrams: 12/19/20 11:54 12/19/20 11:54 Lab Results 12/19/20 12/19/20 12/19/20 Range/Units 11:54 11:54 11:54 WBC 5.6 (3.8-10.6) k/uL RBC 4.57 (3.80-5.40) m/uL Hgb 13.3 (11.4-16.0) gm/dL Hct 38.8 (34.0-46.0) % MCV 84.7 (80.0-100.0) fL MCH 29.1 (25.0-35.0) pg MCHC 34.4 (31.0-37.0) g/dL RDW 13.1 (11.5-15.5) % Plt Count 165 (150-450) k/uL MPV 8.5 Neutrophils % 75 % Lymphocytes % 15 % Monocytes % 6 % Eosinophils % 3 % Basophils % 1 % Neutrophils # 4.2 (1.3-7.7) k/uL Lymphocytes # 0.9 L (1.0-4.8) k/uL Monocytes # 0.3 (0-1.0) k/uL Eosinophils # 0.1 (0-0.7) k/uL Basophils # 0.0 (0-0.2) k/uL PT (9.0-12.0) sec INR (<1.2) APTT (22.0-30.0) sec D-Dimer (<0.60) mg/L FEU Sodium 138 (137-145) mmol/L Potassium 4.6 (3.5-5.1) mmol/L Chloride 105 (98-107) mmol/L Carbon Dioxide 28 (22-30) mmol/L Anion Gap 5 mmol/L BUN 11 (7-17) mg/dL Creatinine 0.72 (0.52-1.04) mg/dL Est GFR (CKD-EPI)AfAm 90 (>60 ml/min/1.73 sqM) Est GFR (CKD-EPI)NonAf 78 (>60 ml/min/1.73 sqM) Glucose 110 H (74-99) mg/dL Plasma Lactic Acid Anup 1.0 (0.7-2.0) mmol/L Calcium 9.3 (8.4-10.2) mg/dL Magnesium 1.9 (1.6-2.3) mg/dL Total Bilirubin 0.6 (0.2-1.3) mg/dL AST 30 (14-36) U/L ALT 17 (4-34) U/L Alkaline Phosphatase 69 (38-126) U/L Creatine Kinase 121 (30-135) U/L Troponin I (0.000-0.034) ng/mL NT-Pro-B Natriuret Pep pg/mL Total Protein 6.6 (6.3-8.2) g/dL Albumin 4.1 (3.5-5.0) g/dL 12/19/20 12/19/20 12/19/20 Range/Units 11:54 11:54 13:38 WBC (3.8-10.6) k/uL RBC (3.80-5.40) m/uL Hgb (11.4-16.0) gm/dL Hct (34.0-46.0) % MCV (80.0-100.0) fL MCH (25.0-35.0) pg MCHC (31.0-37.0) g/dL RDW (11.5-15.5) % Plt Count (150-450) k/uL MPV Neutrophils % % Lymphocytes % % Monocytes % % Eosinophils % % Basophils % % Neutrophils # (1.3-7.7) k/uL Lymphocytes # (1.0-4.8) k/uL Monocytes # (0-1.0) k/uL Eosinophils # (0-0.7) k/uL Basophils # (0-0.2) k/uL PT 10.3 (9.0-12.0) sec INR 1.0 (<1.2) APTT 18.5 L (22.0-30.0) sec D-Dimer <0.17 (<0.60) mg/L FEU Sodium (137-145) mmol/L Potassium (3.5-5.1) mmol/L Chloride (98-107) mmol/L Carbon Dioxide (22-30) mmol/L Anion Gap mmol/L BUN (7-17) mg/dL Creatinine (0.52-1.04) mg/dL Est GFR (CKD-EPI)AfAm (>60 ml/min/1.73 sqM) Est GFR (CKD-EPI)NonAf (>60 ml/min/1.73 sqM) Glucose (74-99) mg/dL Plasma Lactic Acid Anup (0.7-2.0) mmol/L Calcium (8.4-10.2) mg/dL Magnesium (1.6-2.3) mg/dL Total Bilirubin (0.2-1.3) mg/dL AST (14-36) U/L ALT (4-34) U/L Alkaline Phosphatase (38-126) U/L Creatine Kinase (30-135) U/L Troponin I <0.012 (0.000-0.034) ng/mL NT-Pro-B Natriuret Pep 77 pg/mL Total Protein (6.3-8.2) g/dL Albumin (3.5-5.0) g/dL - EKG Data -: EKG Interpreted by Me EKG Comments: Initial EKG showed a sinus rhythm of 71 VA interval 168 QRS 62 QT since QTC 410/445 possible left atrial enlargement nonspecific ST configuration marked amount of artifact noted. Repeat EKG done shortly thereafter showed a sinus rhythm a 72 minus he artifact. Interval 156 QRS 60 QT since QTC 3/424 low- voltage QRS - Radiology Data Radiology results: report reviewed (Imaging reviewed no acute findings.), image reviewed Disposition Clinical Impression: Bilateral calf pain, Dyspnea Disposition: HOME SELF-CARE Condition: Good Instructions (If sedation given, give patient instructions): Leg Pain (ED), Urinary Incontinence (ED), Dyspnea (ED) Is patient prescribed a controlled substance at d/c from ED?: No Referrals: Adonis Mcdaniel MD [Primary Care Provider] - 1-2 days
[2020-12-19 12:13] LABS: Albumin 4.1 g/dL (3.5-5.0); Calcium 9.3 mg/dL (8.4-10.2); Magnesium 1.9 mg/dL (1.6-2.3); Potassium 4.6 mmol/L (3.5-5.1); Total Bilirubin 0.6 mg/dL (0.2-1.3); Total Protein 6.6 g/dL (6.3-8.2)
[2020-12-19 12:15] LABS: Basophils % (A) 1 %; Eosinophils # (A) 0.1 k/uL (0-0.7); Eosinophils % (A) 3 %; HCT 38.8 % (34.0-46.0); HGB 13.3 gm/dL (11.4-16.0); Lymphocytes # (A) 0.9 k/uL (1.0-4.8); Lymphocytes % (A) 15 %; MCH 29.1 pg (25.0-35.0); MCHC 34.4 g/dL (31.0-37.0); MCV 84.7 fL (80.0-100.0); Mean Platelet Volume 8.5; Monocytes # (A) 0.3 k/uL (0-1.0); Monocytes % (A) 6 %; Neutrophils # (A) 4.2 k/uL (1.3-7.7); Neutrophils % (A) 75 %; Platelet Count 165 k/uL (150-450); RBC 4.57 m/uL (3.80-5.40); RDW 13.1 % (11.5-15.5); WBC 5.6 k/uL (3.8-10.6)
--- NOTE | 2020-12-19 13:10 | XR ---
EXAMINATION TYPE: XR chest 2V DATE OF EXAM: 12/19/2020 COMPARISON: 02/17/2014 TECHNIQUE: PA and lateral views submitted. HISTORY: Difficulty breathing FINDINGS: The lungs are clear and there is no pneumothorax, pleural effusion, or focal pneumonia. Subsegmenta l changes left lower lobe. Coarsened interstitium. Biapical pleural thickening. Heart size normal. Hy pertrophic and degenerative changes spine. IMPRESSION: 1. Basilar atelectasis favored over pneumonia.
--- NOTE | 2020-12-19 14:46 | US ---
EXAMINATION TYPE: US venous doppler duplex LE DATE OF EXAM: 12/19/2020 2:07 PM COMPARISON: NONE CLINICAL HISTORY: Bilateral calf pain with shortness of breath,. SIDE PERFORMED: Bilateral TECHNIQUE: The lower extremity deep venous system is examined utilizing real time linear array sonog eugene with graded compression, doppler sonography and color-flow sonography. VESSELS IMAGED: Common Femoral Vein Deep Femoral Vein Greater Saphenous Vein * Femoral Vein Popliteal Vein Small Saphenous Vein * Proximal Calf Veins (* superficial vessels) There is normal flow, compressibility, vascular waveforms Right Leg: Negative for DVT Left Leg: Negative for DVT IMPRESSION: No evident deep venous thrombosis at the level the knees or central to the knees by Doppl er exam, follow-up as indicated
[2020-12-19 14:57] LABS: Prothrombin Time 10.3 sec (9.0-12.0)
[2020-12-19 15:04] LABS: D-Dimer <0.17 mg/L FEU (<0.60); Partial Thromboplastin Time 18.5 sec (22.0-30.0)
[2020-12-19 15:29] VITALS: BP 150/60; PULSE 70; RESP 16
[2020-12-19 15:47] LABS: Appearance,Urine Clear (Clear); Bilirubin,Urine Negative (Negative); Blood,Urine Negative (Negative); Color,Urine Light Yellow; Glucose,Urine (UA) Negative (Negative); Ketones,Urine 1+ (Negative); Leukocyte Esterase,Urine Negative (Negative); Nitrite,Urine Negative (Negative); Protein,Urine Negative (Negative); Specific Gravity,Urine 1.006 (1.001-1.035); Urobilinogen,Urine <2.0 mg/dL (<2.0)
== END 2020-12-19 15:30 | disposition home or self-care (01) ==
LOC: EC 10:55
DX: R06.00 Dyspnea, unspecified (principal); F32.9 Major depressive disorder, single episode, unspecified; M79.662 Pain in left lower leg; M79.661 Pain in right lower leg; E78.5 Hyperlipidemia, unspecified; M79.7 Fibromyalgia; Z90.710 Acquired absence of both cervix and uterus
CPT/HCPCS: 36415; 71046; 80053; 81003; 82550; 83605; 83735; 83880; 84484; 85025; 85379; 85610; 85730; 93005; 93970; 99285

== ENCOUNTER → 2021-01-30 | Outpatient (CLI) | payer MEDICARE, BC ==
--- NOTE | 2021-01-30 11:35 | MM ---
Reason for exam: additional evaluation requested from prior study. Last mammogram was performed 2 years and 2 months ago. History: Patient is postmenopausal and has history of high-risk lesion on a previous biopsy at age 31. Family history of breast cancer in sister at age 67. Implant Removal of both breasts, 1993. Implants in both breasts, 1979. Mastectomy of the left breast, 1959. Mastectomy of the right breast, 1959. Excisional biopsy of the left breast. Excisional biopsy of the right breast. Physical Findings: Nurse did not find any significant physical abnormalities on exam. MG 3D Diag Mammo W/Cad WOLFGANG Bilateral CC and MLO view(s) were taken. Prior study comparison: December 07, 2018, bilateral MG 3d diag mammo w/cad WOLFGANG. November 27, 2017, bilateral MG 3d diag mammo w/cad WOLFGANG. There are scattered fibroglandular densities. Post biopsy changes bilaterally. These results were verbally communicated with the patient and result sheet given to the patient on 01/30/21. ASSESSMENT: Benign, BI-RAD 2 RECOMMENDATION: Routine screening mammogram of both breasts in 1 year.
== END | disposition home or self-care (01) ==
LOC: RADMAMWWP 10:05
PROVIDERS: ATTEND Internal Medicine Geriatric Medicine
DX: R92.8 Other abnormal and inconclusive findings on diagnostic imaging of breast (principal); Z80.3 Family history of malignant neoplasm of breast
CPT/HCPCS: 77066; G0279; 77062

== ENCOUNTER → 2021-01-31 | Outpatient (CLI) | payer MEDICARE, BC ==
[2021-01-31 08:56] VITALS: BP 130/67; PULSE 78; RESP 18; TEMP 98.5
--- NOTE | 2021-01-31 13:04 | P.HPOB ---
History of Present Illness H&P Date: 01/31/21 Chief Complaint: The patient is here for her routine gynecologic exam. This is an 85-year-old with an LMP of 1971. She is here to establish with this office. She is status post REBEKA and LSO for benign abnormal bleeding. She has been experiencing some urinary leakage during the past 2 months. She states it is small amount but is not associated with stress or urge symptoms. She states it can occur any time. She has been experiencing some some low abdominal and pelvic pains which are intermittent and these can be worse after eating.. She sometimes feels a slight bulge in the vagina but denies latoya prolapse from the vagina that she can see. She states as a child she had some type of vaginal injury when she sat on some type of metal object that did require sutures. She denies any significant complications with her vaginal deliveries. She believes in the past she has urinated from 2 spots in the genital area and more recently she thinks she is now only urinating from 1 spot. She cannot explain why she believes she was previously urinating from 2 spots. She denies dysuria, hematuria or urinary urgency. Review of Systems She has intentionally lost about 14 pounds over the past year. She is done with this with dietary changes and exercise. She now states she is eating a plant based dye. She denies respiratory, cardiac and G.I. problems. She denies maltreatment or problems with falling. : She has been experiencing some urinary leakage during the past 2 months as in the HPI. Past Medical History Past Medical History: Coronary Artery Disease (CAD), Hyperlipidemia, Rheumatoid Arthritis (RA) Additional Past Medical History / Comment(s): Kidney stones. 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 History of Any Multi-Drug Resistant Organisms: None Reported Past Surgical History: Appendectomy, Breast Surgery, Hernia Repair, Hysterectomy, Joint Replacement Additional Past Surgical History / Comment(s): Partial BL mastectomies(breast tissue remains) for noncancerous indication. Bilateral breast implants and these were later removed. Previous breast biopsies. REBEKA LSO 1971. Right inguinal hernia repair. Right knee replacement. Past Psychological History: Anxiety, Depression Smoking Status: Never smoker Past Alcohol Use History: Occasional (2 per month) Past Drug Use History: None Reported Additional History: The patient is . She is not sexually active. She is retired. - Past Family History Father Family Medical History: Cancer Additional Family Medical History / Comment(s): Lung cancer. Mother Family Medical History: Coronary Artery Disease (CAD) Additional Family Medical History / Comment(s): Maternal uncle had colon cancer. Sister(s) Additional Family Medical History / Comment(s): Oral and throat cancer. Medications and Allergies Home Medications Medication Instructions Recorded Confirmed Type Aspirin [Adult Low Dose Aspirin EC] 81 mg PO QAM 07/06/17 01/31/21 History Ibuprofen [Advil] 200 mg PO BID PRN 07/06/17 01/31/21 History ALPRAZolam [Xanax] 0.25 mg PO TID PRN 12/19/20 01/31/21 History Atorvastatin [Lipitor] 20 mg PO BID@1400,1800 12/19/20 01/31/21 History Isosorbide Mononitrate ER [Imdur] 15 mg PO DAILY 12/19/20 01/31/21 History Cyanocobalamin (Vitamin B-12) 1,000 mcg PO DAILY 01/31/21 01/31/21 History [Vitamin B-12] Ergocalciferol [Vitamin D2 (1250 1,250 mcg PO WEEKLY 01/31/21 01/31/21 History Mcg = 95372 Iu)] Allergies Allergy/AdvReac Type Severity Reaction Status Date / Time iron AdvReac Nausea & Verified 01/31/21 08:56 Vomiting Exam Vital Signs Temp Pulse Resp BP Pulse Ox 01/31/21 08:51 98.5 F 78 18 130/67 96 Intake and Output 01/30/21 01/31/21 01/31/21 22:59 06:59 14:59 Other: Weight 71.668 kg Height 5 feet 2 inches, weight 158 pounds, BMI 28.9. This is a well-developed well-nourished white female who is alert and oriented times 3 in no acute distress. HEENT: Within normal limits. NECK: Supple without mass or thyromegaly. CHEST AND LUNGS: Clear to auscultation. HEART: Regular rate and rhythm. BREASTS: Refused by the patient. She states breast exams are done by Dr. Enrique Simon. AXILLARY EXAM: Negative for adenopathy. BACK: Negative for CVA tenderness. ABDOMEN: Soft, nontender, without palpable masses. PELVIC EXAM: External genitalia appears normal with moderate atrophy. Vagina appears normal with moderate atrophy. There is a grade 2 cystocele at rest. This cystocele approaches the introitus with hard Valsalva and coughing. No urinary leakage is demonstrated. Bimanual examination is negative for mass or tenderness. The vaginal cuff is well supported. RECTAL EXAM: Rectovaginal exam is negative for mass or tenderness and is negative for occult blood. Upon rectal exam there is a grade 1 rectocele. EXTREMITIES: Nontender. IMPRESSION: 1. 85-year-old female who is status post REBEKA LSO for benign reasons with grade 2-3 cystocele and small grade 1 rectocele. 2. Recent urinary incontinence which may or may not be related to the cystocele. 3. The patient describes urinating from 2 openings, but there is no evidence of urinary openings other than the urethral opening. There is no evidence of bladder fistula. 4. Intermittent low abdominal and pelvic pain without any significant physical findings on exam today. Differential diagnosis will include UTI, discomfort from the cystocele, right ovarian abnormality, and non-gynecologic discomfort. PLAN: 1. Pap smears have been discontinued. 2. Breast exam was refused by the patient. Recent mammogram on 01/30/2021 was benign. She will continue to see Dr. Enrique Simon for breast exams and mammograms. 3. We have had long discussion regarding possible causes for urinary incontinence. She understands that this may be related to the cystocele which was found on exam today. There are other possible causes including overflow incontinence, urge incontinence, stress urinary incontinence and UTI. We have discussed Kegel exercises and negative Valsalva exercises. I have recommended that she try to empty the bladder as completely as possible when she does void, not by bearing down, but by relaxing and giving herself more time. She will also try to do the negative Valsalva exercises prior to voiding. We have discussed possible surgical options if she is having greater problems with urinary incontinence and also surgical correction for cystocele if this becomes more symptomatic. She is not interested in any type of surgical intervention at this time. 4. Urine will be obtained for urinalysis and culture with sensitivity. The patient was unable to give a urine specimen for this today. She will return at a later time for this. 5. Pelvic ultrasound was recommended to further evaluate the low abdominal and pelvic discomfort. The patient states she does not want a transvaginal ultrasound. This will be done transabdominally, but she understands that this may be more limited without the transvaginal approach. The order slip was given to the patient for this. 6. She has completed her Covid vaccination series. She also did receive her flu shot last fall. 7. The ACOG FAQ handout on pelvic support problems was given to the patient. 8. She was advised to return in one year for her annual well woman exam and as needed.
== END | disposition home or self-care (01) ==
LOC: WWCWWP 08:15
PROVIDERS: ATTEND Obstetrics & Gynecology
DX: Z01.419 Encounter for gynecological examination (general) (routine) without abnormal findings (principal); N81.10 Cystocele, unspecified; N81.6 Rectocele; R32 Unspecified urinary incontinence; N83.8 Other noninflammatory disorders of ovary, fallopian tube and broad ligament; Z90.711 Acquired absence of uterus with remaining cervical stump; E78.5 Hyperlipidemia, unspecified; F32.9 Major depressive disorder, single episode, unspecified; F41.9 Anxiety disorder, unspecified; I25.10 Atherosclerotic heart disease of native coronary artery without angina pectoris; M06.9 Rheumatoid arthritis, unspecified; Z79.82 Long term (current) use of aspirin; Z88.9 Allergy status to unspecified drugs, medicaments and biological substances

== ENCOUNTER → 2021-11-20 | Outpatient (CLI) | payer MEDICARE, BC ==
[2021-11-20 18:25] LABS: Basophils # (A) 0.04 X 10*3/uL (0.00-0.10); Basophils % (A) 0.6 %; Eosinophils # (A) 0.05 X 10*3/uL (0.04-0.35); Eosinophils % (A) 0.8 %; HCT 40.7 % (37.2-46.3); HGB 12.5 g/dL (12.0-15.0); Immature Grans, Automated 0.3 %; Lymphocytes # (A) 0.99 X 10*3/uL (0.90-5.00); Lymphocytes % (A) 15.5 %; MCH 27.7 pg (27.0-32.0); MCHC 30.7 g/dL (32.0-37.0); Mean Platelet Volume 12.5 fL (9.5-12.2); Monocytes # (A) 0.49 X 10*3/uL (0.20-1.00); Monocytes % (A) 7.7 %; NRBC Per 100 WBC 0 /100 WBCS (0.0-0.0); Neutrophils % (A) 75.1 %; Platelet Count 189 X 10*3/uL (140-440); RBC 4.52 X 10*6/uL (4.10-5.20); RDW 13.4 % (11.5-14.5); WBC 6.39 X 10*3/uL (4.50-10.00)
[2021-11-20 19:10] LABS: ALT 21 U/L (8-44); AST 27 U/L (13-35); African American GFR (CKD) 70.5 (60.0-200.0); Albumin 4.4 g/dL (3.8-4.9); Albumin/Globulin Ratio 1.83 (1.60-3.17); Alkaline Phosphatase 75 U/L (41-126); Blood Urea Nitrogen 11.3 mg/dL (9.0-27.0); Calcium 9.5 mg/dL (8.7-10.3); Carbon Dioxide 23.7 mmol/L (20.0-27.5); Chloride 106 mmol/L (96-109); Chol/HDL Ratio 2.49 Ratio; Globulin 2.4 g/dL (1.6-3.3); Glucose 107 mg/dL (70-110); LDL Cholesterol,Calculated 72.6 mg/dL (0.0-131.0); Non-African American GFR(CKD) 60.8 (60.0-200.0); Potassium 4.7 mmol/L (3.5-5.5); Sodium 143 mmol/L (135-145); Total Protein 6.9 g/dL (6.2-8.2); VLDL Calculation 12.98 mg/dL (5.00-40.00)
== END | disposition home or self-care (01) ==
LOC: LABWHC1 11:12
PROVIDERS: ATTEND Internal Medicine Geriatric Medicine
DX: I25.10 Atherosclerotic heart disease of native coronary artery without angina pectoris (principal); R73.9 Hyperglycemia, unspecified
CPT/HCPCS: 36415; 80053; 80061; 83036; 84443; 85025

== ENCOUNTER → 2022-05-27 | Outpatient (CLI) | payer MEDICARE, BC ==
--- NOTE | 2022-05-27 13:35 | XR ---
EXAMINATION TYPE: XR foot complete RT DATE OF EXAM: 05/27/2022 COMPARISON: NONE HISTORY: Pain TECHNIQUE: Three views are submitted. FINDINGS: The osseous structures are intact. Diffuse osteopenia. There is no acute fracture or dislocation. A rthropathy of the first MTP joint. There is a mildly displaced fracture involving the distal phalanx digit. Evaluation of the phalanges of the second through fifth digit limited due to hammertoe deformi ties and positioning. Tiny calcaneal spurs are seen. IMPRESSION: 1. Mildly displaced fracture distal phalanx first digit
== END | disposition home or self-care (01) ==
LOC: RADXRMAIN 13:01
PROVIDERS: ATTEND Internal Medicine Geriatric Medicine
DX: S62.521A Displaced fracture of distal phalanx of right thumb, initial encounter for closed fracture (principal); X58.XXXA Exposure to other specified factors, initial encounter

== ENCOUNTER → 2022-08-01 | Outpatient (CLI) | payer MEDICARE, BC ==
[2022-08-01 10:43] LABS: Basophils # (A) 0.05 X 10*3/uL (0.00-0.10); Basophils % (A) 0.9 %; Eosinophils # (A) 0.19 X 10*3/uL (0.04-0.35); Eosinophils % (A) 3.4 %; HCT 40.7 % (37.2-46.3); HGB 12.5 g/dL (12.0-15.0); Immature Grans, Automated 0.2 %; Lymphocytes # (A) 1.57 X 10*3/uL (0.90-5.00); Lymphocytes % (A) 27.7 %; MCH 27.4 pg (27.0-32.0); MCHC 30.7 g/dL (32.0-37.0); MCV 89.1 fL (80.0-97.0); Mean Platelet Volume 11.8 fL (9.5-12.2); Monocytes # (A) 0.56 X 10*3/uL (0.20-1.00); Monocytes % (A) 9.9 %; NRBC Per 100 WBC 0 /100 WBCS (0.0-0.0); Neutrophils # (A) 3.29 X 10*3/uL (1.80-7.70); Neutrophils % (A) 57.9 %; Platelet Count 173 X 10*3/uL (140-440); RBC 4.57 X 10*6/uL (4.10-5.20); RDW 13.2 % (11.5-14.5); WBC 5.67 X 10*3/uL (4.50-10.00)
[2022-08-01 12:04] LABS: ALT 19 U/L (8-44); AST 28 U/L (13-35); African American GFR (CKD) 67.1 (60.0-200.0); Albumin/Globulin Ratio 1.54 (1.60-3.17); Alkaline Phosphatase 72 U/L (41-126); Blood Urea Nitrogen 10.8 mg/dL (9.0-27.0); Calcium 9.5 mg/dL (8.7-10.3); Carbon Dioxide 26.1 mmol/L (20.0-27.5); Chloride 107 mmol/L (96-109); Chol/HDL Ratio 2.54 Ratio; Globulin 2.6 g/dL (1.6-3.3); Glucose 111 mg/dL (70-110); LDL Cholesterol,Calculated 62.1 mg/dL (0.0-131.0); Non-African American GFR(CKD) 57.9 (60.0-200.0); Potassium 4.2 mmol/L (3.5-5.5); Sodium 143 mmol/L (135-145); Total Protein 6.6 g/dL (6.2-8.2); VLDL Calculation 14.26 mg/dL (5.00-40.00)
== END | disposition home or self-care (01) ==
LOC: LABWHC1 07:04
PROVIDERS: ATTEND Internal Medicine Geriatric Medicine
DX: I25.10 Atherosclerotic heart disease of native coronary artery without angina pectoris (principal); R73.9 Hyperglycemia, unspecified
CPT/HCPCS: 36415; 80053; 80061; 83036; 84439; 84443; 85025

== ENCOUNTER 2024-09-11 08:17 | Inpatient (IN) | payer MEDICARE, BC ==
--- NOTE | 2024-09-11 09:00 | ED ---
General Adult HPI - General Chief complaint: Fall Stated complaint: fall,dizziness Time Seen by Provider: 09/11/24 08:19 Source: patient, EMS Mode of arrival: EMS - History of Present Illness Initial comments: Dictation was produced using [employer] dictation software. please excuse any grammatical, word or spelling errors. Chief Complaint: 89-year-old female with orthostasis frequent falls History of Present Illness: Patient is an 89-year-old female she has history of coronary artery disease, dyslipidemia and rheumatoid arthritis. Patient here in the emergency department today after having had suffered frequent falls with last 3 days states she fell 15 times. States on 1 of those events she hurt her neck. States that she feels lightheaded whenever he tries to stand up. Patient worried that this has some to do with some sort of chronic fungal infection in her bowel. The ROS documented in this emergency department record has been reviewed and confirmed by me. Those systems with pertinent positive or negative responses have been documented in the HPI. All other systems are other negative and/or noncontributory. - Related Data Home Medications Medication Instructions Recorded Confirmed Aspirin [Adult Low Dose Aspirin EC] 81 mg PO QAM 07/06/17 09/26/22 ALPRAZolam [Xanax] 0.25 mg PO TID PRN 12/19/20 09/26/22 Cyanocobalamin (Vitamin B-12) 1,000 mcg PO DAILY 01/31/21 09/26/22 [Vitamin B-12] Ergocalciferol [Vitamin D2 (1250 1,250 mcg PO WEEKLY 01/31/21 09/26/22 Mcg = 45646 Iu)] Allergies Allergy/AdvReac Type Severity Reaction Status Date / Time iron AdvReac Nausea & Verified 09/11/24 08:27 Vomiting Review of Systems ROS Statement: Those systems with pertinent positive or pertinent negative responses have been documented in the HPI. ROS Other: All systems not noted in ROS Statement are negative. Past Medical History Past Medical History: Coronary Artery Disease (CAD), Hyperlipidemia, Rheumatoid Arthritis (RA) Additional Past Medical History / Comment(s): Kidney stones. 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 History of Any Multi-Drug Resistant Organisms: None Reported Past Surgical History: Appendectomy, Breast Surgery, Hernia Repair, Hysterectomy, Joint Replacement Additional Past Surgical History / Comment(s): Partial BL mastectomies(breast tissue remains) for noncancerous indication. Bilateral breast implants and these were later removed. Previous breast biopsies. [facility] LSO 1971. Right inguinal hernia repair. Right knee replacement. Past Psychological History: Anxiety, Depression Smoking Status: Never smoker Past Alcohol Use History: Occasional Past Drug Use History: None Reported - Past Family History Father Family Medical History: Cancer Additional Family Medical History / Comment(s): Lung cancer. Mother Family Medical History: Coronary Artery Disease (CAD) Additional Family Medical History / Comment(s): Maternal uncle had colon cancer. Sister(s) Additional Family Medical History / Comment(s): Oral and throat cancer. General Exam - General Exam Comments Initial Comments: PHYSICAL EXAM: General Impression: Alert and oriented x3, not in acute distress HEENT: Normocephalic atraumatic, extra-ocular movements intact, pupils equal and reactive to light bilaterally, mucous membranes moist. Cardiovascular: Heart regular rate and rhythm Chest: Able to complete full sentences, no retractions, no tachypnea Abdomen: abdomen soft, non-tender, non-distended, no organomegaly Musculoskeletal: Pulses present and equal in all extremities, no peripheral edema Motor: no focal deficits noted Neurological: CN II-XII grossly intact, no focal motor or sensory deficits noted Skin: Intact with no visualized rashes Psych: Normal affect and mood Course Vital Signs 09/11/24 09/11/24 09/11/24 08:19 10:53 12:57 Temperature 98.1 F Pulse Rate 80 74 Pulse Rate [ 85 Sitting] Pulse Rate [ 95 Standing] Pulse Rate [ 76 Supine] Respiratory 18 20 Rate Blood Pressure 150/80 164/66 Blood Pressure 174/73 [Sitting] Blood Pressure 146/73 [Standing] Blood Pressure 148/63 [Supine] O2 Sat by Pulse 99 98 Oximetry EKG Findings - EKG Comments: EKG Findings:: My EKG interpretation: Ventricular rate 71, sinus rhythm,. 148, QRS 83, QTc 413. No DE prolongation, no QTC prolongation, no ST or T-wave changes noted. Overall, this EKG is unremarkable Medical Decision Making - Medical Decision Making Was pt. sent in by a medical professional or institution (, PA, ACCOUNTING MANAGER ASSISTANT CONTROLLER, urgent care, hospital, or [facility]...) When possible be specific @ -No Did you speak to anyone other than the patient for history (EMS, parent, family, police, friend...)? What history was obtained from this source @ -No Did you review nursing and triage notes (agree or disagree)? Why? @ -I reviewed and agree with nursing and triage notes Were old charts reviewed (outside hosp., previous admission, EMS record, old EKG, old radiological studies, urgent care reports/EKG's, ch[facility] records)? Report findings @ -No old charts were reviewed Differential Diagnosis (chest pain, altered mental status, abdominal pain women, abdominal pain men, vaginal bleeding, musculoskeletal, weakness, fever, dyspnea, syncope, headache, dizziness, GI bleed, back pain, seizure, CVA, palpatations, mental health)? @ -Differential Weakness: Hypoglycemia, shock, sepsis, hyponatremia, anemia, infection, NV, ETOH, adverse medicine reaction, overdose, stroke, this is not meant to be an all-inclusive list. EKG interpreted by me (3pts min.). @ -See above X-rays interpreted by me (1pt min.). @ -Chest and pelvis x-ray shows no acute processes CT interpreted by me (1pt min.). @ -CT brain and C-spine shows no acute processes U/S interpreted by me (1pt. min.). @ -None done What testing was considered but not performed or refused? (CT, X-rays, U/S, labs)? Why? @ -None What meds were considered but not given or refused? Why? @ -None Was smoking cessation discussed for >3mins.? @ -No Were there social determinants of health that impacted care today? How? (Homelessness, low income, unemployed, alcoholism, drug addiction, transportation, low edu. Level, literacy, decrease access to med. care, custodial, rehab)? @ -Poor social situation Was there de-escalation of care discussed even if they declined (Discuss DNR or withdrawal of care, Hospice)? DNR status @ -No What co-morbidities impacted this encounter? (DM, HTN, Smoking, COPD, CAD, Cancer, CVA, ARF, Chemo, Hep., AIDS, mental health diagnosis, sleep apnea, m orbid obesity)? @ -Rheumatoid arthritis Was patient admitted / discharged? Hospital course, mention meds given and route, prescriptions, significant lab abnormalities, going to OR and other pertinent info. @ -81-year-old female presents to the emergency department for frequent falls generalized weakness she states that she has suffered at least 15 falls within the last 3 days. Patient has no obvious traumatic injuries on physical examination. Vital signs stable. Imaging studies are negative. Labs unremarkable. Due to port patient's poor social situation should be admitted consultation to social work for grave disability Did you discuss the management of the patient with other professionals (professionals i.e. , PA, ACCOUNTING MANAGER ASSISTANT CONTROLLER, lab, RT, psych nurse, social media sr strategy manager, sprinkler driver, teacher, first officer and flight instructor, nurse case management)? Give summary @ -Case discussed with hospitalist for admission Was critical care preformed (if so, how long)? @ -No Undiagnosed new problem with uncertain prognosis? @ -No Drug Therapy requiring intensive monitoring for toxicity (Heparin, Nitro, Insulin, Cardizem)? @ -No Were any procedures done? @ -No Diagnosis/symptom? Acute, or Chronic, or Acute on Chronic? Uncomplicated (without systemic symptoms) or Complicated (systemic symptoms)? @ -Gravely disabled Side effects of treatment? @ -No Exacerbation, Progression, or Severe Exacerbation? @ -No Poses a threat to life or bodily function? How? (Chest pain, USA, NV, pneumonia, PE, COPD, DKA, ARF, appy, cholecystitis, CVA, Diverticulitis, Homicidal, Suicidal, threat to staff... and all critical care pts) @ -yes - Lab Data Result diagrams: 09/11/24 09:03 09/11/24 09:03 Lab Results 09/11/24 09/11/24 09/11/24 Range/Units 09:03 09:03 09:03 WBC 6.0 (3.8-10.6) k/uL RBC 5.19 (3.80-5.40) m/uL Hgb 14.2 (11.4-16.0) gm/dL Hct 44.8 (34.0-46.0) % MCV 86.3 (80.0-100.0) fL MCH 27.2 (25.0-35.0) pg MCHC 31.6 (31.0-37.0) g/dL RDW 13.1 (11.5-15.5) % Plt Count 198 (150-450) k/uL MPV 8.2 Neutrophils % 76 % Lymphocytes % 15 % Monocytes % 6 % Eosinophils % 1 % Basophils % 1 % Neutrophils # 4.6 (1.3-7.7) k/uL Lymphocytes # 0.9 L (1.0-4.8) k/uL Monocytes # 0.4 (0-1.0) k/uL Eosinophils # 0.0 (0-0.7) k/uL Basophils # 0.0 (0-0.2) k/uL PT 10.3 (10.0-12.5) sec INR 0.9 (<1.2) APTT 22.4 (22.0-30.0) sec Sodium 138 (137-145) mmol/L Potassium 3.7 (3.5-5.1) mmol/L Chloride 102 (98-107) mmol/L Carbon Dioxide 30 (22-30) mmol/L Anion Gap 6 mmol/L BUN 12 (7-17) mg/dL Creatinine 0.79 (0.52-1.04) mg/dL Est GFR (CKD-EPI)AfAm 78 (>60 ml/min/1.73 sqM) Est GFR (CKD-EPI)NonAf 68 (>60 ml/min/1.73 sqM) Glucose 106 H (74-99) mg/dL Plasma Lactic Acid Anup (0.7-2.0) mmol/L Calcium 9.9 (8.4-10.2) mg/dL Magnesium 1.9 (1.6-2.3) mg/dL Total Bilirubin 1.0 (0.2-1.3) mg/dL AST 26 (14-36) U/L ALT 17 (4-34) U/L Alkaline Phosphatase 76 (38-126) U/L Troponin I (0.000-0.034) ng/mL Total Protein 6.8 (6.3-8.2) g/dL Albumin 4.3 (3.5-5.0) g/dL Influenza Type A (PCR) (Not Detectd) Influenza Type B (PCR) (Not Detectd) RSV (PCR) (Not Detectd) SARS-CoV-2 (PCR) (Not Detectd) 09/11/24 09/11/24 09/11/24 Range/Units 09:03 09:03 10:29 WBC (3.8-10.6) k/uL RBC (3.80-5.40) m/uL Hgb (11.4-16.0) gm/dL Hct (34.0-46.0) % MCV (80.0-100.0) fL MCH (25.0-35.0) pg MCHC (31.0-37.0) g/dL RDW (11.5-15.5) % Plt Count (150-450) k/uL MPV Neutrophils % % Lymphocytes % % Monocytes % % Eosinophils % % Basophils % % Neutrophils # (1.3-7.7) k/uL Lymphocytes # (1.0-4.8) k/uL Monocytes # (0-1.0) k/uL Eosinophils # (0-0.7) k/uL Basophils # (0-0.2) k/uL PT (10.0-12.5) sec INR (<1.2) APTT (22.0-30.0) sec Sodium (137-145) mmol/L Potassium (3.5-5.1) mmol/L Chloride (98-107) mmol/L Carbon Dioxide (22-30) mmol/L Anion Gap mmol/L BUN (7-17) mg/dL Creatinine (0.52-1.04) mg/dL Est GFR (CKD-EPI)AfAm (>60 ml/min/1.73 sqM) Est GFR (CKD-EPI)NonAf (>60 ml/min/1.73 sqM) Glucose (74-99) mg/dL Plasma Lactic Acid Anup 1.2 (0.7-2.0) mmol/L Calcium (8.4-10.2) mg/dL Magnesium (1.6-2.3) mg/dL Total Bilirubin (0.2-1.3) mg/dL AST (14-36) U/L ALT (4-34) U/L Alkaline Phosphatase (38-126) U/L Troponin I <0.012 (0.000-0.034) ng/mL Total Protein (6.3-8.2) g/dL Albumin (3.5-5.0) g/dL Influenza Type A (PCR) Not Detected (Not Detectd) Influenza Type B (PCR) Not Detected (Not Detectd) RSV (PCR) Not Detected (Not Detectd) SARS-CoV-2 (PCR) Not Detected (Not Detectd) Disposition Clinical Impression: Weakness Disposition: ADMITTED IP TO THIS HOSP Condition: Fair Referrals: Adonis Queen MD [Primary Care Provider] - 1-2 days Decision Time: 13:17
[2024-09-11 09:13] LABS: Basophils % (A) 1 %; Eosinophils % (A) 1 %; HCT 44.8 % (34.0-46.0); HGB 14.2 gm/dL (11.4-16.0); Lymphocytes # (A) 0.9 k/uL (1.0-4.8); Lymphocytes % (A) 15 %; MCH 27.2 pg (25.0-35.0); MCHC 31.6 g/dL (31.0-37.0); MCV 86.3 fL (80.0-100.0); Mean Platelet Volume 8.2; Monocytes # (A) 0.4 k/uL (0-1.0); Monocytes % (A) 6 %; Neutrophils # (A) 4.6 k/uL (1.3-7.7); Neutrophils % (A) 76 %; Platelet Count 198 k/uL (150-450); RBC 5.19 m/uL (3.80-5.40); RDW 13.1 % (11.5-15.5)
[2024-09-11 09:24] LABS: ALT 17 U/L (4-34); AST 26 U/L (14-36); African American GFR (CKD) 78 (>60 ml/min/1.73 sqM); Albumin 4.3 g/dL (3.5-5.0); Alkaline Phosphatase 76 U/L (38-126); Anion Gap 6 mmol/L; Blood Urea Nitrogen 12 mg/dL (7-17); Calcium 9.9 mg/dL (8.4-10.2); Carbon Dioxide 30 mmol/L (22-30); Chloride 102 mmol/L (98-107); Glucose 106 mg/dL (74-99); Magnesium 1.9 mg/dL (1.6-2.3); Non-African American GFR(CKD) 68 (>60 ml/min/1.73 sqM); Potassium 3.7 mmol/L (3.5-5.1); Sodium 138 mmol/L (137-145); Total Protein 6.8 g/dL (6.3-8.2)
[2024-09-11 09:29] LABS: INR 0.9 (<1.2); Partial Thromboplastin Time 22.4 sec (22.0-30.0); Prothrombin Time 10.3 sec (10.0-12.5)
[2024-09-11] MEDS: ONDANSETRON 4 MG/2 ML VIAL IVP STA (10:54)
--- NOTE | 2024-09-11 11:10 | CT ---
EXAMINATION TYPE: CT brain cspine wo con DATE OF EXAM: 09/11/2024 10:34 AM COMPARISON: 07/09/2017 CLINICAL INDICATION: Female, 89 years old with history of fall, neck pain, dizziness, pain TECHNIQUE: CT of the brain is performed utilizing 3 mm thick sections through the posterior fossa and 3 mm thick sections through the remaining calvarium. Study is performed within 24 hours of arrival to the hospital. Contrast used: mL of , (none if empty) CT DLP: mGycm, Automated exposure control for dose reduction was used. FINDINGS: No abnormal hyperdensity is present to suggest an acute intracranial hemorrhage. No mass lesion is evident. No acute infarcts are evident. Periventricular white matter hypodensity is present, likely on the ba sis of chronic white matter ischemic changes. Ventricles and sulci are prominent for the patient age. Paranasal sinuses and mastoid air cells within the [id number] are clear. IMPRESSIONS: 1. Periventricular white matter hypodensity likely on the basis of chronic white matter ischemic grace ges with atrophy. 2. No acute intracranial process. Follow-up MRI can be performed as clinically indicated CT cervical spine. COMPARISON: None TECHNIQUE: CT of the cervical spine is performed in the axial plane at 2 mm thick sections. Reconstr ucted images in the coronal, and sagittal plane are reviewed on the computer. FINDINGS: No acute fractures are evident. Some minimal retrolisthesis of C5 on C6 may be present. There is loss of disc height at C5-6 and milder loss of disc height C6-7 some T2-3 disc height loss i s present. Vertebral body heights are preserved. Prevertebral space is normal. Anterior vertebral body spurring is present C5 and C6. No spinal canal stenosis is evident. Uncovertebral joint hypertrophy at C3-4 has severe left foraminal stenosis. Moderate foraminal narrow ing is present bilaterally at C5-6. IMPRESSION: 1. No acute osseous abnormality cervical spine. 2. Degenerative disc changes C5-6. Minimal retrolisthesis may be present [facility], , 09/11/2024 11:08 AM
[2024-09-11 11:13] LABS: Influenza A Not Detected (Not Detectd); Influenza B Not Detected (Not Detectd); RSV Not Detected (Not Detectd)
--- NOTE | 2024-09-11 13:16 | XR ---
EXAMINATION TYPE: XR pelvis AP view DATE OF EXAM: 09/11/2024 12:00 PM COMPARISON: None. CLINICAL INDICATION: Female, 89 years old with history of tail bone pain after fall, pain TECHNIQUE: AP view(s) obtained. FINDINGS: No acute fracture or dislocation evident. Femoral heads articulate with the acetabulum. Joint spaces are preserved. Symphysis pubis and sacroiliac joints are normal. IMPRESSION: 1. No acute osseous abnormality AP pelvis [facility], , 09/11/2024 1:14 PM
[2024-09-11] MEDS ORDERED: NALOXONE 0.4 MG/ML 1 ML VIAL IV PRN (13:17)
--- NOTE | 2024-09-11 13:17 | XR ---
EXAMINATION TYPE: XR chest 1V portable DATE OF EXAM: 09/11/2024 12:00 PM COMPARISON: 12/19/2020 CLINICAL INDICATION: Female, 89 years old with history of fall, neck pain, TECHNIQUE: XR chest 1V portable view(s) obtained. FINDINGS: The heart size is normal. The pulmonary vasculature is somewhat prominent. The lungs are clear. IMPRESSION: 1. No acute pulmonary process. [facility], , 09/11/2024 1:15 PM
[2024-09-11] MEDS ORDERED: ACETAMINOPHEN TAB 325 MG TAB PO PRN (16:05)
[2024-09-11] MEDS: SODIUM CHLORIDE 0.9% 1,000 ML IV SCH (17:29)
[2024-09-11 17:40] LABS: Appearance,Urine Clear (Clear); Bilirubin,Urine Negative (Negative); Blood,Urine Negative (Negative); Color,Urine Colorless; Glucose,Urine (UA) Negative (Negative); Ketones,Urine Trace (Negative); Leukocyte Esterase,Urine Negative (Negative); Nitrite,Urine Negative (Negative); Protein,Urine Negative (Negative); Specific Gravity,Urine 1.005 (1.001-1.035); Urobilinogen,Urine <2.0 mg/dL (<2.0)
[2024-09-11] MEDS: ONDANSETRON 4 MG/2 ML VIAL IVP PRN (17:50)
--- NOTE | 2024-09-11 18:56 | P.HPIM ---
History of Present Illness H&P Date: 09/11/24 This is a pleasant 89-year-old female who follows with Dr. Queen with medical history significant for coronary artery disease, hyperlipidemia, rheumatoid arthritis. Also history of non hodkins lymphoma. Patient is a poor historian and not sure of her medical history. Patient is brought into the ER secondary to frequent falls over the last 4 to 5 days states that she is fell about 15 times. Patient does state that she has injured her neck during 1 of those falls. She now comes in with lightheadedness whenever she tries to stand up. Patient states she has had to call 911 multiple times to get back on her feet. She reports initially living with her Son Andrade but then states she has her own condo and he has his own condo. She states her 1 year ago. Erasmo (spouse) is the only number available in the medical record to call. She states Andrade went home. Patient reports having this chronic history of mucoid stools states it came from her dentist and also that she "hoards" diflucan because they won't give it to you and she admits to take it frequently. There is no evidence of any oral thrush on examination. Multiple times during assessment patient states she is "only 60 years old". She reports being uninterested in seeing GI or going for a colonoscopy in regards to the mucoid bowel movements. Patient is also asking if she can go home as she does better at home during the night. She wants to come back tomorrow. Denies any chest pain or shortness of breath. No nausea vomiting or diarrhea reported. No focal weakness reported. She has been urinating on a blanket in the bed because she cannot get up and has not been asking staff for help. EKG on admission reveals sinus rhythm with occasional supraventricular premature complexes heart rate of [address] or T wave changes. Head cervical spine CT revealed periventricular white matter hypodensity likely on the basis of chronic white matter ischemic changes with atrophy there is no acute intracranial process. The CT of the cervical spine reveals no acute osseous abnormality there is degenerative disc changes C5-6 with minimal retrolisthesis may be present. Pelvic X-ray reveals no acute osseou s abnormality. Chest x-ray reveals no acute pulmonary process. Blood work reveals a white blood cell count of 6.0, hemoglobin 14.2, sodium of 138 potassium of 3.7, BUN of 12 creatinine of 0.79 and a glucose of 106. Troponin level is negative. Her viral panel is negative for influenza RSV and COVID. In the ER patient received a dose of Zofran for some nausea. A urinalysis is currently pending at this time. Patient will be admitted to the hospital under internal medicine with a consult placed to physical therapy and Occupational Therapy as well as social work as she may require subacute rehab on discharge. Secondary to the lightheadedness; orthostatic vitals were checked and are negati ve. REVIEW OF SYSTEMS: CONSTITUTIONAL: No fever, no malaise, no fatigue. HEENT: No recent visual problems or hearing problems. Denied any sore throat. CARDIOVASCULAR: No chest pain, orthopnea, PND, no palpitations, no syncope. PULMONARY: No shortness of breath, no cough, no hemoptysis. GASTROINTESTINAL: No diarrhea, no nausea, no vomiting, no abdominal pain. NEUROLOGICAL: No headaches, no weakness, no numbness. HEMATOLOGICAL: Denies any bleeding or petechiae. GENITOURINARY: Denies any burning micturition, frequency, or urgency. MUSCULOSKELETAL/RHEUMATOLOGICAL: Denies any joint pain, swelling, or any muscle pain. ENDOCRINE: Denies any polyuria or polydipsia. The rest of the 14-point review of systems is negative. PHYSICAL EXAMINATION: GENERAL: The patient is alert and oriented x3, not in any acute distress. Well developed, well nourished. HEENT: Pupils are round and equally reacting to light. EOMI. No scleral icterus. No conjunctival pallor. Normocephalic, atraumatic. No pharyngeal erythema. No thyromegaly. CARDIOVASCULAR: S1 and S2 present. No murmurs, rubs, or gallops. PULMONARY: Chest is clear to auscultation, no wheezing or crackles. ABDOMEN: Soft, nontender, nondistended, normoactive bowel sounds. No palpable organomegaly. MUSCULOSKELETAL: No joint swelling or deformity. EXTREMITIES: No cyanosis, clubbing, or pedal edema. NEUROLOGICAL: Gross neurological examination did not reveal any focal deficits. SKIN: No rashes. Assessment and Plan Altered mental status probably has some underlying dementia going on. Generalized weakness and chronic medical debility with frequent falls Pre-syncope under investigation Neck pain status post fall with negative imaging History of coronary artery disease History of hyperlipidemia Rheumatoid arthritis History of non-Hodgkin's lymphoma History of breast cancer History of renal calculus GI prophylaxis DVT prophylaxis Full code Plan Continue cardiac telemetry Orthostatic vitals Q shift Hold xanax Hold diflucan Add seroquel 12.5 mg po HS for agitation Check urinalysis PT/OT consultation has been ordered Speech therapy consultation for cognitive testing The impression and plan of care has been dictated by Bre Worthington, Nurse Practitioner as directed. Dr. Kristyn MD I have performed a history and physical examination and medical decision making of this patient, discussed the same with the dictator, and agree with the dictators assessment and plan as written, documented as a scribe. Based on total visit time, I have performed more than 50% of this visit. Past Medical History Past Medical History: Coronary Artery Disease (CAD), Hyperlipidemia, Rheumatoid Arthritis (RA) Additional Past Medical History / Comment(s): Kidney stones. 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 History of Any Multi-Drug Resistant Organisms: None Reported Past Surgical History: Appendectomy, Breast Surgery, Hernia Repair, Hysterectomy , Joint Replacement Additional Past Surgical History / Comment(s): Partial BL mastectomies(breast tissue remains) for noncancerous indication. Bilateral breast implants and t hese were later removed. Previous breast biopsies. [facility] 1971. Right inguinal hernia repair. Right knee replacement. Past Psychological History: Anxiety, Depression Smoking Status: Never smoker Past Alcohol Use History: Occasional Past Drug Use History: None Reported - Past Family History Father Family Medical History: Cancer Additional Family Medical History / Comment(s): Lung cancer. Mother Family Medical History: Coronary Artery Disease (CAD) Additional Family Medical History / Comment(s): Maternal uncle had colon cancer. Sister(s) Additional Family Medical History / Comment(s): Oral and throat cancer. Medications and Allergies Home Medications Medication Instructions Recorded Confirmed Type ALPRAZolam [Xanax] 0.25 mg PO TID PRN 12/19/20 09/11/24 History Fluconazole [Diflucan] 150 mg PO DAILY 09/11/24 09/11/24 History Allergies Allergy/AdvReac Type Severity Reaction Status Date / Time iron AdvReac Nausea & Verified 09/11/24 13:28 Vomiting Physical Exam Vitals: Vital Signs Temp Pulse Pulse Pulse Pulse Resp BP 09/11/24 12:57 85 95 76 09/11/24 10:53 74 20 164/66 09/11/24 08:19 98.1 F 80 18 150/80 BP BP BP Pulse Ox 09/11/24 12:57 174/73 146/73 148/63 09/11/24 10:53 98 09/11/24 08:19 99 Intake and Output 09/11/24 09/11/24 09/11/24 06:59 14:59 22:59 Other: Weight 56.699 kg Results CBC & Chem 7: 09/11/24 09:03 09/11/24 09:03 Labs: Abnormal Lab Results - Last 24 Hours (Table) 09/11/24 09/11/24 Range/Units 09:03 09:03 Lymphocytes # 0.9 L (1.0-4.8) k/uL Glucose 106 H (74-99) mg/dL Assessment and Plan Time with Patient: Less than 30
[2024-09-11] MEDS: HEPARIN SODIUM,PORCINE 5,000 UNIT/ML 1 ML VIAL SQ SCH (21:34)
[2024-09-12] MEDS: PANTOPRAZOLE 40 MG TABLET PO SCH (06:46)
[2024-09-12] MEDS: QUEtiapine 25 MG TAB PO PRN (20:12)
--- NOTE | 2024-09-12 20:14 | P.PN ---
Subjective Progress Note Date: 09/12/24 This is a pleasant 89-year-old female who follows with Dr. Queen with medical history significant for coronary artery disease, hyperlipidemia, rheumatoid arthritis. Also history of non hodkins lymphoma. Patient is a poor historian and not sure of her medical history. Patient is brought into the ER secondary to frequent falls over the last 4 to 5 days states that she is fell about 15 times. Patient does state that she has injured her neck during 1 of those falls. She now comes in with lightheadedness whenever she tries to stand up. Patient states she has had to call 911 multiple times to get back on her feet. She reports initially living with her Son Andrade but then states she has her own condo and he has his own condo. She states her 1 year ago. Erasmo (spouse) is the only number available in the medical record to call. She states Andrade went home. Patient reports having this chronic history of mucoid stools states it came from her dentist and also that she "hoards" diflucan because they won't give it to you and she admits to take it frequently. There is no evidence of any oral thrush on examination. Multiple times during assessment patient states she is "only 60 years old". She reports being uninterested in seeing GI or going for a colonoscopy in regards to the mucoid bowel movements. Patient is also asking if she can go home as she does better at home during the night. She wants to come back tomorrow. Denies any chest pain or shortness of breath. No nausea vomiting or diarrhea reported. No focal weakness reported. She has been urinating on a blanket in the bed because she cannot get up and has not been asking staff for help. EKG on admission reveals sinus rhythm with occasional supraventricular premature complexes heart rate of [address] or T wave changes. Head cervical spine CT revealed periventricular white matter hypodensity likely on the basis of chronic white matter ischemic changes with atrophy there is no acute intracranial process. The CT of the cervical spine reveals no acute osseous abnormality there is degenerative disc changes C5-6 with minimal retrolisthesis may be present. Pelvic X-ray reveals no acute osseous abnormality. Chest x-ray reveals no acute pulmonary process. Blood work reveals a white blood cell count of 6.0, hemoglobin 14.2, sodium of 138 potassium of 3.7, BUN of 12 creatinine of 0.79 and a glucose of 106. Troponin level is negative. Her viral panel is negative for influenza RSV and COVID. In the ER patient received a dose of Zofran for some nausea. A urinalysis is currently pending at this time. Patient will be admitted to the hospital under internal medicine with a consult placed to physical therapy and Occupational Therapy as well as social work as she may require subacute rehab on discharge. Secondary to the lightheadedness; orthostatic vitals were checked and are negative. 09/12/2024 Patient evaluated today resting in bed. Unable to call son for updated medical history etc as number not available he has not been in to see the patient either. Patient remains confused at times states that overnight there were 3 prisoners on the other side of the wall. She acknowledges she is in the hospital. No acute complaints otherwise. Pending physical evaluation for friday. Urinalysis negative for infection. REVIEW OF SYSTEMS: CONSTITUTIONAL: No fever, no malaise, no fatigue. HEENT: No recent visual problems or hearing problems. Denied any sore throat. CARDIOVASCULAR: No chest pain, orthopnea, PND, no palpitations, no syncope. PULMONARY: No shortness of breath, no cough, no hemoptysis. GASTROINTESTINAL: No diarrhea, no nausea, no vomiting, no abdominal pain. NEUROLOGICAL: No headaches, no weakness, no numbness. PHYSICAL EXAMINATION: GENERAL: The patient is alert and oriented x2, not in any acute distress. Well developed, well nourished. HEENT: Pupils are round and equally reacting to light. EOMI. No scleral icterus. No conjunctival pallor. Normocephalic, atraumatic. No pharyngeal erythema. No thyromegaly. CARDIOVASCULAR: S1 and S2 present. No murmurs, rubs, or gallops. PULMONARY: Chest is clear to auscultation, no wheezing or crackles. ABDOMEN: Soft, nontender, nondistended, normoactive bowel sounds. No palpable organomegaly. MUSCULOSKELETAL: No joint swelling or deformity. EXTREMITIES: No cyanosis, clubbing, or pedal edema. NEUROLOGICAL: Gross neurological examination did not reveal any focal deficits. SKIN: No rashes. Assessment and Plan Altered mental status probably has some underlying dementia going on. Generalized weakness and chronic medical debility with frequent falls Pre-syncope under investigation Neck pain status post fall with negative imaging History of coronary artery disease History of hyperlipidemia Rheumatoid arthritis History of non-Hodgkin's lymphoma History of breast cancer History of renal calculus GI prophylaxis DVT prophylaxis Full code Plan Continue cardiac telemetry Orthostatic vitals Q shift Hold xanax Hold diflucan Continue seroquel 12.5 mg po HS for agitation PT/OT consultation has been ordered Speech therapy consultation for cognitive testing Soical work for discharge planning The impression and plan of care has been dictated by Bre Worthington, Nurse Practitioner as directed. Dr. Kristyn MD I have performed a history and physical examination and medical decision making of this patient, discussed the same with the dictator, and agree with the dictators assessment and plan as written, documented as a scribe. Based on total visit time, I have performed more than 50% of this visit. Objective - Vital Signs Vital signs: Vital Signs Temp 98.0 F 09/12/24 14:10 Pulse 66 09/12/24 14:10 Resp 18 09/12/24 14:10 BP 175/71 09/12/24 14:10 Pulse Ox 96 09/12/24 14:10 FiO2 Intake & Output 09/12/24 09/12/24 09/13/24 06:59 18:59 06:59 Intake Total 540 Balance 540 Weight 56.699 kg Intake: Oral 540 Other: Voiding Method Bedside Commode Bedside Commode Diaper Diaper # Voids 4 1 # Bowel Movements 0 - Labs CBC & Chem 7: 09/11/24 09:03 09/11/24 09:03 Assessment and Plan Time with Patient: Less than 30
[2024-09-13 08:45] VITALS: RESP 17
[2024-09-13 14:52] VITALS: BP 159/76; PULSE 83; TEMP 98.3
== END 2024-09-13 16:00 | disposition home health service (06) | DRG 312 ==
LOC: EC 08:17 → 4SSUR 13:17
PROVIDERS: ADMIT Hospitalist; ATTEND Hospitalist
DX: R55 Syncope and collapse (principal); E78.5 Hyperlipidemia, unspecified; F03.94 Unspecified dementia, unspecified severity, with anxiety; M06.9 Rheumatoid arthritis, unspecified; F32.A Depression, unspecified; F03.93 Unspecified dementia, unspecified severity, with mood disturbance; M50.322 Other cervical disc degeneration at C5-C6 level; I25.10 Atherosclerotic heart disease of native coronary artery without angina pectoris; R29.6 Repeated falls; Z79.82 Long term (current) use of aspirin; Z85.3 Personal history of malignant neoplasm of breast; Z85.72 Personal history of non-Hodgkin lymphomas; Z96.651 Presence of right artificial knee joint; Z88.8 Allergy status to other drugs, medicaments and biological substances; Z60.8 Other problems related to social environment
CPT/HCPCS: 36415; 51702; 70450; 71045; 72125; 72170; 80053; 81003; 83605; 83735; 84443; 84484; 85025; 85610; 85730; 87636; 93005; 96374; 99285